=== PATIENT | female | born 1950 | race Two or more races ===

== ENCOUNTER 2019-08-18 14:34 | Inpatient (IN) | payer MEDICARE, MEDICAID ==
[~2019-08-18] VITALS: Ht 167.6 cm; Wt 63.2 kg
[~2019-08-18 14:34] MED LIST: ALLO100T PO; COR6 PO; FERR325T23 PO; FURO40TA5 PO; HYDR-4001 PO; HYDR-4135 PO; NIFE-32 PO; SILD20TA PO
[2019-08-18] MEDS ORDERED: ALBUTEROL (0.083%) 2.5MG/3ML NEB HHN STA (15:42)
[2019-08-18] MEDS ORDERED: METHYLPREDNISOLONE SOD SUCC 125 MG/2 ML VIAL IV STA (15:42)
[2019-08-18] MEDS ORDERED: IPRATROPIUM BROMIDE (0.02%) 0.5MG/2.5ML NEB HHN STA (15:42)
[2019-08-18] MEDS ORDERED: ASPIRIN 81MG TABLET PO ONE (15:45)
[2019-08-18] MEDS ORDERED: MAGNESIUM 2 G PREMIX 50 ML IV ONE (15:45)
[2019-08-18] MEDS ORDERED: FUROSEMIDE 40MG/4ML VIAL IV ONE (15:45)
[2019-08-18 17:05] LABS: BASOPHILS % 0.3 % (0.0-2.0); LYMPHOCYTES % 7.2 % (20.0-50.0); MEAN CORPUSCULAR HEMOGLOBIN 27.8 pg (28.0-32.0); MEAN CORPUSCULAR VOLUME 89.5 fL (81.0-99.0); MEAN PLATELET VOLUME 8.7 fl (7.4-10.4); MONOCYTES % 4.9 % (2.0-8.0); NEUTROPHILS % 87.6 % (40.0-76.0); PLATELET 183 x1000/uL (130-400); RED BLOOD CELL COUNT 1.93 mill/uL (4.2-5.4); RED CELL DISTRIBUTION WIDTH 18.7 % (11.6-14.6)
[2019-08-18 17:10] LABS: CHLORIDE 117 mEq/L (98-107); HEMOGLOBIN. 5.4 g/dL (12.0-16.0)
[2019-08-18 17:11] LABS: HEMATOCRIT. 17.3 % (36.0-48.0); INR 1.2
[2019-08-18] MEDS ORDERED: SODIUM BICARBONATE 8.4% 1 MEQ/ML 50ML SYR IV ONE (17:30)
[2019-08-18] MEDS ORDERED: DEXTROSE 50% WATER 50ML SYRINGE IV ONE (17:30)
[2019-08-18] MEDS ORDERED: INSULIN REGULAR (HUMULIN R) 300UNITS/3ML IV ONE (17:30)
[2019-08-18] MEDS ORDERED: CALCIUM GLUCONATE 1,000 MG in DEXT 5% WATER 100 ML IV NR (17:45)
[2019-08-18 18:12] LABS: PHOSPHORUS 6.2 mg/dL (2.5-4.9)
[2019-08-18 18:31] LABS: CLARITY URINE CLOUDY (CLEAR); COLOR URINE YELLOW (YELLOW); KETONES URINE NEGATIVE (NEGATIVE); LEUKOCYTE ESTERASE URINE NEGATIVE (NEGATIVE); NITRITE URINE NEGATIVE (NEGATIVE); OCCULT BLOOD URINE NEGATIVE (NEGATIVE); PROTEIN URINE 3+ (NEGATIVE); SPECIFIC GRAVITY URINE 1.014 (1.005-1.030); UROBILINOGEN URINE 0.2 E.U./dL (0.2-1.0)
[2019-08-18] MEDS ORDERED: CLON0.1T PO (22:05)
[2019-08-18] MEDS ORDERED: CARV12.545 PO (22:05)
[2019-08-18] MEDS ORDERED: HYDR-4135 PO (22:05)
[2019-08-18] MEDS ORDERED: NIFE-32 PO (22:05)
[2019-08-18] MEDS ORDERED: SILD20TA PO (22:05)
[2019-08-18] MEDS: MORPHINE SULFATE 2 MG/ML CPJ (NOT FOR IM USE) IV PRN (22:43)
[2019-08-18] MEDS ORDERED: SILDENAFIL CITRATE 20MG TABLET PO SCH (23:15)
[2019-08-18] MEDS ORDERED: ONDANSETRON HCL 4MG/2ML INJ IV PRN (23:15)
[2019-08-18] MEDS ORDERED: ENOXAPARIN 40MG/0.4ML SYR SUBCUT SCH (23:15)
[2019-08-18] MEDS ORDERED: LORAZEPAM 2MG/ML CPJ IV PRN (23:15)
[2019-08-18] MEDS ORDERED: IPRATROPIUM/ALBUTEROL 0.5-3(2.5)MG/3ML NEB NEB PRN (23:15)
[2019-08-19] VITALS (14 sets, daily range): BP systolic 92–145; BP diastolic 61–73
[2019-08-19] MEDS: NIFEDIPINE XL 60MG TAB PO SCH ×2 (00:50→09:00)
[2019-08-19] MEDS: CLONIDINE 0.1MG TABLET PO SCH ×2 (00:50→05:37)
[2019-08-19] MEDS: IPRATROPIUM/ALBUTEROL 0.5-3(2.5)MG/3ML NEB NEB PRN ×2 (00:53→20:59)
[2019-08-19 03:47] LABS: *AMPHETAMINES SCREEN URINE NEGATIVE (NEGATIVE); *BARBITURATES SCREEN URINE NEGATIVE (NEGATIVE); *BENZODIAZEPINES SCREEN URINE NEGATIVE (NEGATIVE); *COCAINE SCREEN URINE NEGATIVE (NEGATIVE); CANNABINOID URINE SCREEN NEGATIVE (NEGATIVE); METHADONE URINE SCREEN NEGATIVE (NEGATIVE); OPIATES URINE SCREEN NEGATIVE (NEGATIVE)
[2019-08-19 03:48] LABS: PHENCYCLIDINE URINE SCREEN NEGATIVE (NEGATIVE)
[2019-08-19] MEDS ORDERED: HYDRALAZINE HCL 50MG TABLET PO SCH (06:00)
[2019-08-19 07:12] LABS: MEAN CORPUSCULAR HEMOGLOBIN 27.7 pg (28.0-32.0); MEAN CORPUSCULAR VOLUME 89.1 fL (81.0-99.0); MEAN PLATELET VOLUME 8.8 fl (7.4-10.4); PLATELET 194 x1000/uL (130-400); RED BLOOD CELL COUNT 2.13 mill/uL (4.2-5.4); RED CELL DISTRIBUTION WIDTH 18.7 % (11.6-14.6)
[2019-08-19 07:23] LABS: HEMOGLOBIN. 5.9 g/dL (12.0-16.0)
[2019-08-19] MEDS ORDERED: LEVOFLOXACIN 500MG PREMIX 100 ML IV SCH (09:00)
[2019-08-19] MEDS ORDERED: ASPIRIN 81MG EC TABLET PO SCH (09:00)
[2019-08-19] MEDS ORDERED: CARVEDILOL 12.5MG TABLET PO SCH (09:00)
[2019-08-19 09:07] LABS: TOTAL IRON BINDING CAPACITY 244 ug/dL (250-450)
[2019-08-19] MEDS: FUROSEMIDE 40MG/4ML VIAL IV SCH ×2 (09:38→17:00)
[2019-08-19] MEDS: HYDROCODONE/ACETAMINOPHEN 5/325MG TABLET PO PRN (09:38)
[2019-08-19] MEDS ORDERED: SODIUM POLYSTYRENE SULFONATE 15 G/60 ML BOT PO SCH (10:30)
[2019-08-19 11:18] LABS: HEMATOCRIT. 23.3 % (36.0-48.0); HEMOGLOBIN. 7.3 g/dL (12.0-16.0); MEAN CORPUSCULAR HEMOGLOBIN 28.2 pg (28.0-32.0); MEAN CORPUSCULAR VOLUME 89.9 fL (81.0-99.0); MEAN PLATELET VOLUME 8.8 fl (7.4-10.4); PLATELET 243 x1000/uL (130-400); RED BLOOD CELL COUNT 2.59 mill/uL (4.2-5.4)
[2019-08-19] MEDS ORDERED: DEXTROSE 50% WATER 50ML SYRINGE IV PRN (11:45)
[2019-08-19] MEDS ORDERED: SODIUM BICARBONATE 8.4% 1 MEQ/ML 50ML SYR IV NR ×2 (12:00→13:45)
[2019-08-19] MEDS: BLOOD SUGAR DIAGNOSTIC STRIP TEST SCH ×3 (12:30→20:18)
[2019-08-19] MEDS: OMEPRAZOLE 20MG CAPSULE EXTENDED RELEASE PO SCH (12:49)
[2019-08-19] MEDS: FERROUS SULFATE 325MG TABLET PO SCH ×2 (12:50→18:00)
[2019-08-19 12:58] LABS: PLATELET ESTIMATE NORMAL
[2019-08-19] MEDS ORDERED: CALCIUM CHLORIDE 1,000 MG in DEXT 5% WATER 90 ML IV NR (13:00)
[2019-08-19] MEDS: INSULIN LISPRO 100 UNITS/ML SUBCUT SCH ×3 (13:00→20:44)
[2019-08-19] MEDS: PANTOPRAZOLE SODIUM 40 MG/VIAL IV SCH (13:30)
[2019-08-19] MEDS ORDERED: SODIUM BICARBONATE 4% (2.4MEQ) 5ML VIAL IV ONE (13:36)
[2019-08-19] MEDS ORDERED: LIDOCAINE HCL 1% 20ML VIAL (Pyxis) INJ ONE (13:36)
[2019-08-19] MEDS ORDERED: DEXTROSE 50% WATER 50ML SYRINGE IV NR (13:45)
[2019-08-19] MEDS ORDERED: ALBUTEROL (0.083%) 2.5MG/3ML NEB HHN NR (13:45)
[2019-08-19 13:58] LABS: NUCLEATED RED BLOOD CELLS 1 /100 WBC; PLATELET ESTIMATE NORMAL
[2019-08-19] MEDS ORDERED: CALCIUM GLUCONATE 1,000 MG in DEXT 5% WATER 90 ML IV NR (14:00)
[2019-08-19] MEDS ORDERED: INSULIN REGULAR (HUMULIN R) UD 100 UNITS/ML SYR IV NR (14:00)
[2019-08-19] MEDS: BUDESONIDE 0.5MG/2ML NEB HHN SCH ×2 (17:24→20:57)
[2019-08-19] MEDS: IRON SUCROSE COMPLEX 100 MG/5 ML ML IV SCH (18:55)
[2019-08-20] VITALS (16 sets, daily range): BP systolic 108–160; BP diastolic 58–81
[2019-08-20 00:23] LABS: PHOSPHORUS 6.9 mg/dL (2.5-4.9)
[2019-08-20] MEDS: IPRATROPIUM/ALBUTEROL 0.5-3(2.5)MG/3ML NEB NEB PRN ×3 (01:07→09:21)
[2019-08-20 01:15] LABS: HEPATITIS A AB IGM NEGATIVE (NEGATIVE)
[2019-08-20 01:52] LABS: HEPATITIS B SURFACE ANTIGEN NEGATIVE
[2019-08-20 07:10] LABS: HEMOGLOBIN. 7.1 g/dL (12.0-16.0); MEAN CORPUSCULAR HEMOGLOBIN 28.5 pg (28.0-32.0); MEAN CORPUSCULAR VOLUME 88.6 fL (81.0-99.0); MEAN PLATELET VOLUME 8.8 fl (7.4-10.4); PLATELET 208 x1000/uL (130-400); RED BLOOD CELL COUNT 2.49 mill/uL (4.2-5.4); RED CELL DISTRIBUTION WIDTH 18.2 % (11.6-14.6)
[2019-08-20] MEDS: BLOOD SUGAR DIAGNOSTIC STRIP TEST SCH ×4 (07:53→21:00)
[2019-08-20] MEDS: INSULIN LISPRO 100 UNITS/ML SUBCUT SCH ×4 (08:00→21:00)
[2019-08-20] MEDS: PANTOPRAZOLE SODIUM 40 MG/VIAL IV SCH (08:25)
[2019-08-20] MEDS: FUROSEMIDE 40MG/4ML VIAL IV SCH ×2 (08:26→16:45)
[2019-08-20] MEDS: FERROUS SULFATE 325MG TABLET PO SCH ×3 (08:26→17:19)
[2019-08-20] MEDS: OMEPRAZOLE 20MG CAPSULE EXTENDED RELEASE PO SCH (08:28)
[2019-08-20] MEDS ORDERED: DOCUSATE SODIUM 100MG CAPSULE PO PRN (08:30)
[2019-08-20] MEDS: BUDESONIDE 0.5MG/2ML NEB HHN SCH ×2 (09:20→21:09)
[2019-08-20] MEDS ORDERED: NA PHOS,M-B/NA PHOS,DI-BA ENEMA 118ML PR SCH (11:45)
[2019-08-20] MEDS: IPRATROPIUM/ALBUTEROL 0.5-3(2.5)MG/3ML NEB HHN SCH ×3 (12:57→21:08)
[2019-08-20 14:04] LABS: NUCLEATED RED BLOOD CELLS 1 /100 WBC; PLATELET ESTIMATE NORMAL
[2019-08-20] MEDS ORDERED: LIDOCAINE HCL 1% 20ML VIAL (Pyxis) INJ ONE (14:36)
[2019-08-20] MEDS ORDERED: SODIUM BICARBONATE 4% (2.4MEQ) 5ML VIAL IV ONE (14:37)
[2019-08-20] MEDS ORDERED: DOCUSATE SODIUM 100MG CAPSULE PO NR ×2 (15:00→19:00)
[2019-08-20] MEDS ORDERED: METOCLOPRAMIDE HCL 10MG/2ML VIAL IV NR ×2 (15:00→19:00)
[2019-08-20] MEDS ORDERED: SORBITOL 70% SOLN 30ML PO NR ×2 (16:00→20:00)
[2019-08-20] MEDS: IRON SUCROSE COMPLEX 100 MG/5 ML ML IV SCH (16:45)
[2019-08-20] MEDS: MORPHINE SULFATE 2 MG/ML CPJ (NOT FOR IM USE) IV PRN (18:43)
[2019-08-20 20:14] LABS: HEMATOCRIT 32.8 % (36.0-48.0); HEMOGLOBIN 10.5 g/dL (12.0-16.0)
[2019-08-20] MEDS: CLONIDINE 0.1MG TABLET PO PRN (23:33)
[2019-08-21] VITALS (10 sets, daily range): BP systolic 152–178; BP diastolic 76–91
[2019-08-21] MEDS: IPRATROPIUM/ALBUTEROL 0.5-3(2.5)MG/3ML NEB HHN SCH ×7 (00:22→20:30)
[2019-08-21] MEDS: MORPHINE SULFATE 2 MG/ML CPJ (NOT FOR IM USE) IV PRN ×3 (03:45→20:30)
[2019-08-21 06:56] LABS: HEMATOCRIT. 28.4 % (36.0-48.0); HEMOGLOBIN. 9.4 g/dL (12.0-16.0); MEAN CORPUSCULAR HEMOGLOBIN 28.8 pg (28.0-32.0); MEAN CORPUSCULAR VOLUME 86.7 fL (81.0-99.0); MEAN PLATELET VOLUME 8.5 fl (7.4-10.4); PLATELET 167 x1000/uL (130-400); RED BLOOD CELL COUNT 3.28 mill/uL (4.2-5.4); RED CELL DISTRIBUTION WIDTH 17.3 % (11.6-14.6)
[2019-08-21 07:01] LABS: INR 1.1; PARTIAL THROMBOPLASTIN TIME 38.7 sec (23.4-31.0)
[2019-08-21] MEDS: FERROUS SULFATE 325MG TABLET PO SCH (07:29)
[2019-08-21] MEDS: BLOOD SUGAR DIAGNOSTIC STRIP TEST SCH ×4 (07:29→20:54)
[2019-08-21] MEDS: INSULIN LISPRO 100 UNITS/ML SUBCUT SCH ×4 (08:00→20:55)
[2019-08-21] MEDS: PANTOPRAZOLE SODIUM 40 MG/VIAL IV SCH (08:48)
[2019-08-21] MEDS: FUROSEMIDE 40MG/4ML VIAL IV SCH (08:48)
[2019-08-21] MEDS ORDERED: LEVOFLOXACIN 250MG PREMIX 50 ML IV SCH ×2 (09:00→10:00)
[2019-08-21] MEDS: CLONIDINE 0.1MG TABLET PO PRN ×2 (09:51→18:04)
[2019-08-21 09:55] LABS: PLATELET ESTIMATE NORMAL
[2019-08-21] MEDS: NIFEDIPINE XL 60MG TAB PO SCH ×2 (12:00→20:47)
[2019-08-21] MEDS: BUDESONIDE 0.5MG/2ML NEB HHN SCH ×2 (14:06→20:30)
[2019-08-21] MEDS ORDERED: MIDAZOLAM HCL 5 MG/5 ML VIAL ONE (15:08)
[2019-08-21] MEDS ORDERED: FENTANYL CITRATE/PF 50MCG/ML 2ML VIAL ONE (15:09)
[2019-08-21] MEDS: IRON SUCROSE COMPLEX 100 MG/5 ML ML IV SCH (16:15)
[2019-08-21] MEDS ORDERED: METOCLOPRAMIDE HCL 5MG TABLET PO ONE (16:30)
[2019-08-21] MEDS ORDERED: BISACODYL 5MG TABLET PO NR (16:30)
[2019-08-21] MEDS: BISACODYL 10MG SUPP PR SCH ×2 (19:27→20:19)
[2019-08-21] MEDS ORDERED: SORBITOL 70% SOLN 30ML PO NR (20:00)
[2019-08-21] MEDS: GUAIFENESIN 600MG ER TABLET PO SCH (20:47)
[2019-08-22] VITALS (22 sets, daily range): BP systolic 132–178; BP diastolic 63–89
[2019-08-22] MEDS: IPRATROPIUM/ALBUTEROL 0.5-3(2.5)MG/3ML NEB HHN SCH ×3 (00:28→16:54)
[2019-08-22] MEDS: CLONIDINE 0.1MG TABLET PO PRN (00:32)
[2019-08-22] MEDS ORDERED: METOCLOPRAMIDE HCL 5MG TABLET PO NR (04:00)
[2019-08-22] MEDS ORDERED: SORBITOL 70% SOLN 30ML PO NR ×2 (04:00)
[2019-08-22 06:56] LABS: BASOPHILS % 0.1 % (0.0-2.0); EOSINOPHILS % 1.3 % (0.0-5.0); HEMATOCRIT. 28.6 % (36.0-48.0); HEMOGLOBIN. 9.4 g/dL (12.0-16.0); LYMPHOCYTES % 7.7 % (20.0-50.0); MEAN CORPUSCULAR HEMOGLOBIN 28.6 pg (28.0-32.0); MEAN CORPUSCULAR VOLUME 87.2 fL (81.0-99.0); MEAN PLATELET VOLUME 8.6 fl (7.4-10.4); MONOCYTES % 4.4 % (2.0-8.0); NEUTROPHILS % 86.5 % (40.0-76.0); PLATELET 143 x1000/uL (130-400); RED BLOOD CELL COUNT 3.28 mill/uL (4.2-5.4); RED CELL DISTRIBUTION WIDTH 17.2 % (11.6-14.6)
[2019-08-22] MEDS: BLOOD SUGAR DIAGNOSTIC STRIP TEST SCH ×3 (07:30→17:30)
[2019-08-22] MEDS: INSULIN LISPRO 100 UNITS/ML SUBCUT SCH ×3 (08:00→18:33)
[2019-08-22] MEDS: BUDESONIDE 0.5MG/2ML NEB HHN SCH (08:42)
[2019-08-22] MEDS: PANTOPRAZOLE SODIUM 40 MG/VIAL IV SCH (09:09)
[2019-08-22] MEDS: NIFEDIPINE XL 60MG TAB PO SCH (09:09)
[2019-08-22] MEDS: GUAIFENESIN 600MG ER TABLET PO SCH (09:09)
[2019-08-22] MEDS ORDERED: PREDNISONE 20MG TABLET PO SCH (09:45)
[2019-08-22] MEDS ORDERED: OMEP20CA14 MT (10:26)
[2019-08-22] MEDS ORDERED: SODIUM BICARBONATE 4% (2.4MEQ) 5ML VIAL IV ONE (12:51)
[2019-08-22] MEDS ORDERED: LIDOCAINE HCL 1% 20ML VIAL (Pyxis) INJ ONE (12:51)
[2019-08-22] MEDS ORDERED: FENTANYL CITRATE/PF 50MCG/ML 2ML VIAL ONE (13:27)
[2019-08-22] MEDS ORDERED: FENTANYL CITRATE/PF 50MCG/ML 2ML VIAL IV ONE (13:45)
[2019-08-22] MEDS: HYDROCODONE/ACETAMINOPHEN 5/325MG TABLET PO PRN (17:32)
[2019-08-22] MEDS ORDERED: HEPARIN SODIUM 1,000 UNIT/1ML VIAL IV NR (17:59)
== END 2019-08-22 22:31 | disposition home or self-care (01) | DRG 291 ==
LOC: ER 14:34 → EDBEDREQ 18:20 → ENRESERV 21:00 → 5EST 21:20
PROVIDERS: ADMIT Internal Medicine Nephrology; ATTEND Internal Medicine Nephrology
PROC: 02HV33Z Insertion of Infusion Device into Superior Vena Cava, Percutaneous Approach (ICD-10-PCS; principal; 2019-08-19)
PROC: B548ZZA Ultrasonography of Superior Vena Cava, Guidance (ICD-10-PCS; 2019-08-19)
PROC: 30233N1 Transfusion of Nonautologous Red Blood Cells into Peripheral Vein, Percutaneous Approach (ICD-10-PCS; 2019-08-19)
PROC: 5A1D70Z Performance of Urinary Filtration, Intermittent, Less than 6 Hours Per Day (ICD-10-PCS; 2019-08-19)
PROC: 0W9G3ZZ Drainage of Peritoneal Cavity, Percutaneous Approach (ICD-10-PCS; 2019-08-21)
PROC: 0DB78ZX Excision of Stomach, Pylorus, Via Natural or Artificial Opening Endoscopic, Diagnostic (ICD-10-PCS; 2019-08-21)
PROC: 0DJD8ZZ Inspection of Lower Intestinal Tract, Via Natural or Artificial Opening Endoscopic (ICD-10-PCS; 2019-08-21)
PROC: 0JH63XZ Insertion of Tunneled Vascular Access Device into Chest Subcutaneous Tissue and Fascia, Percutaneous Approach (ICD-10-PCS; 2019-08-22)
PROC: 02HV33Z Insertion of Infusion Device into Superior Vena Cava, Percutaneous Approach (ICD-10-PCS; 2019-08-22)
PROC: B5181ZA Fluoroscopy of Superior Vena Cava using Low Osmolar Contrast, Guidance (ICD-10-PCS; 2019-08-22)
DX: I13.2 Hypertensive heart and chronic kidney disease with heart failure and with stage 5 chronic kidney disease, or end stage renal disease (principal); I50.31 Acute diastolic (congestive) heart failure; J96.00 Acute respiratory failure, unspecified whether with hypoxia or hypercapnia; E43 Unspecified severe protein-calorie malnutrition; J18.9 Pneumonia, unspecified organism; N18.6 End stage renal disease; J44.0 Chronic obstructive pulmonary disease with (acute) lower respiratory infection; J44.1 Chronic obstructive pulmonary disease with (acute) exacerbation; K22.10 Ulcer of esophagus without bleeding; R18.8 Other ascites; N17.9 Acute kidney failure, unspecified; I16.0 Hypertensive urgency; E87.5 Hyperkalemia; I27.20 Pulmonary hypertension, unspecified; K74.60 Unspecified cirrhosis of liver; E87.8 Other disorders of electrolyte and fluid balance, not elsewhere classified; E11.22 Type 2 diabetes mellitus with diabetic chronic kidney disease; K29.70 Gastritis, unspecified, without bleeding; R82.71 Bacteriuria; B19.20 Unspecified viral hepatitis C without hepatic coma; R26.9 Unspecified abnormalities of gait and mobility; E11.42 Type 2 diabetes mellitus with diabetic polyneuropathy; D64.9 Anemia, unspecified; D50.9 Iron deficiency anemia, unspecified; E11.65 Type 2 diabetes mellitus with hyperglycemia; F17.210 Nicotine dependence, cigarettes, uncomplicated; K29.80 Duodenitis without bleeding; Z82.49 Family history of ischemic heart disease and other diseases of the circulatory system; Z83.3 Family history of diabetes mellitus; Z90.710 Acquired absence of both cervix and uterus; Z91.15 Patient's noncompliance with renal dialysis; Z91.19 Patient's noncompliance with other medical treatment and regimen; Z88.7 Allergy status to serum and vaccine; Z79.899 Other long term (current) drug therapy; Z68.22 Body mass index [BMI] 22.0-22.9, adult; Z71.6 Tobacco abuse counseling; Z87.19 Personal history of other diseases of the digestive system
CPT/HCPCS: 36415; 36558; 36589; 49083; 71045; 76705; 76856; 76937; 77001; 80048; 80053; 80305; 81003; 82728; 82962; 83036; 83540; 83550; 83735; 83880; 83970; 84100; 84145; 84484; 85014; 85018; 85025; 86705; 86709; 86803; 86850; 86900; 86920; 87340; 87804; 88305; 88312; 88313; 92610; 93005; 93970; 94640; 94644; 96365; 96366; 96375; 97162; 97166; 99152; 99153; 99291; C1750; C1752; C1769; C9113; J0610; J1642; J1815; J1940; J1956; J2250; J2270; J2765; J2930; J3010; J3475; J3490; J7060; J7512; J7611; J7620; J7626; J8597; P9016; G0500

== ENCOUNTER 2019-09-19 15:17 | Emergency (ER) | payer MEDICARE, MEDICAID ==
[~2019-09-19] VITALS: Ht 167.6 cm; Wt 60.0 kg
[~2019-09-19 15:17] MED LIST changes: -COR6 PO; +OMEP20CA14 MT
[2019-09-19 15:32] VITALS: BP 129/66
== END 2019-09-19 19:45 | disposition left against medical advice (07) ==
LOC: ER 15:17
DX: R42 Dizziness and giddiness (principal); Z53.21 Procedure and treatment not carried out due to patient leaving prior to being seen by health care provider

== ENCOUNTER 2019-11-05 10:22 | Inpatient (IN) | payer MEDICARE, MEDICAID ==
[~2019-11-05] VITALS: Ht 165.1 cm; Wt 51.7 kg
[2019-11-05 11:50] LABS: CHLORIDE 115 mEq/L (98-107)
[2019-11-05 11:51] LABS: INR 0.9; PROTHROMBIN TIME 10.2 sec (9.6-11.0)
[2019-11-05 12:04] LABS: BASOPHILS % 1.2 % (0.0-2.0); EOSINOPHILS % 4.6 % (0.0-5.0); LYMPHOCYTES % 21.6 % (20.0-50.0); MEAN CORPUSCULAR HEMOGLOBIN 31.2 pg (28.0-32.0); MEAN CORPUSCULAR VOLUME 93.9 fL (81.0-99.0); MEAN PLATELET VOLUME 8.5 fl (7.4-10.4); MONOCYTES % 9.5 % (2.0-8.0); NEUTROPHILS % 63.1 % (40.0-76.0); PLATELET 134 x1000/uL (130-400); RED BLOOD CELL COUNT 2.01 mill/uL (4.2-5.4); RED CELL DISTRIBUTION WIDTH 17.6 % (11.6-14.6)
[2019-11-05 12:07] LABS: HEMOGLOBIN. 6.3 g/dL (12.0-16.0)
[2019-11-05 12:08] LABS: HEMATOCRIT. 18.8 % (36.0-48.0)
[2019-11-05 12:25] LABS: CLARITY URINE CLEAR (CLEAR); COLOR URINE YELLOW (YELLOW); KETONES URINE NEGATIVE (NEGATIVE); LEUKOCYTE ESTERASE URINE NEGATIVE (NEGATIVE); NITRITE URINE NEGATIVE (NEGATIVE); OCCULT BLOOD URINE NEGATIVE (NEGATIVE); PH URINE 5.5 (4.5-8.0); PROTEIN URINE 3+ (NEGATIVE); SPECIFIC GRAVITY URINE 1.012 (1.005-1.030); UROBILINOGEN URINE 0.2 E.U./dL (0.2-1.0)
[2019-11-05 21:35] VITALS: BP 181/81
[2019-11-05 22:00] VITALS: BP 181/81
[2019-11-05] MEDS ORDERED: IPRATROPIUM/ALBUTEROL 0.5-3(2.5)MG/3ML NEB NEB PRN (22:00)
[2019-11-05] MEDS ORDERED: ONDANSETRON HCL 4MG/2ML INJ IV PRN (22:00)
[2019-11-05] MEDS ORDERED: ENOXAPARIN 40MG/0.4ML SYR SUBCUT SCH (22:00)
[2019-11-05] MEDS ORDERED: HYDROCODONE/ACETAMINOPHEN 5/325MG TABLET PO PRN (22:00)
[2019-11-05] MEDS ORDERED: ACETAMINOPHEN 325MG TABLET PO PRN (22:00)
[2019-11-05] MEDS ORDERED: LORAZEPAM 2MG/ML CPJ IV PRN (22:00)
[2019-11-05] MEDS: CLONIDINE 0.1MG TABLET PO PRN (22:19)
[2019-11-05] MEDS: MORPHINE SULFATE 2 MG/ML CPJ (NOT FOR IM USE) IV PRN (22:26)
[2019-11-06] VITALS (11 sets, daily range): BP systolic 124–190; BP diastolic 66–84
[2019-11-06 01:06] LABS: HEPATITIS B SURFACE ANTIGEN NEGATIVE
[2019-11-06 01:36] LABS: HEPATITIS A AB IGM NEGATIVE (NEGATIVE)
[2019-11-06] MEDS ORDERED: DEXTROSE 50% WATER 50ML SYRINGE IV PRN (07:30)
[2019-11-06] MEDS: INSULIN LISPRO 100 UNITS/ML SUBCUT SCH ×4 (07:50→20:54)
[2019-11-06] MEDS: LISINOPRIL 10MG TABLET PO SCH (08:03)
[2019-11-06] MEDS: BLOOD SUGAR DIAGNOSTIC STRIP TEST SCH ×4 (08:03→20:54)
[2019-11-06] MEDS: THIAMINE HCL 100MG TABLET PO SCH (08:06)
[2019-11-06 08:28] LABS: BASOPHILS % 0.9 % (0.0-2.0); EOSINOPHILS % 4.4 % (0.0-5.0); LYMPHOCYTES % 26.1 % (20.0-50.0); MEAN CORPUSCULAR HEMOGLOBIN 30.7 pg (28.0-32.0); MEAN CORPUSCULAR VOLUME 92.8 fL (81.0-99.0); MEAN PLATELET VOLUME 8.3 fl (7.4-10.4); MONOCYTES % 12.1 % (2.0-8.0); NEUTROPHILS % 56.5 % (40.0-76.0); PLATELET 118 x1000/uL (130-400); RED BLOOD CELL COUNT 2.12 mill/uL (4.2-5.4); RED CELL DISTRIBUTION WIDTH 16.8 % (11.6-14.6)
[2019-11-06 08:46] LABS: HEMOGLOBIN. 6.5 g/dL (12.0-16.0)
[2019-11-06 08:48] LABS: HEMATOCRIT. 19.7 % (36.0-48.0)
[2019-11-06 08:53] LABS: PHOSPHORUS 7.4 mg/dL (2.5-4.9)
[2019-11-06] MEDS ORDERED: ENOXAPARIN 30MG/0.3ML SYR SUBCUT SCH (09:00)
[2019-11-06] MEDS ORDERED: LIDOCAINE HCL 1% 20ML VIAL (Pyxis) INJ ONE (10:16)
[2019-11-06] MEDS ORDERED: SODIUM BICARBONATE 4% (2.4MEQ) 5ML VIAL IV ONE (10:16)
[2019-11-06] MEDS: FERROUS SULFATE 325MG TABLET PO SCH ×2 (12:57→17:25)
[2019-11-06] MEDS: DOCUSATE SODIUM 250MG CAPSULE PO SCH (12:57)
[2019-11-06] MEDS ORDERED: OMEPRAZOLE 20MG CAPSULE EXTENDED RELEASE PO SCH (13:00)
[2019-11-06] MEDS: AMLODIPINE 5MG TABLET PO SCH (15:00)
[2019-11-06] MEDS: OMEPRAZOLE 20MG CAPSULE EXTENDED RELEASE PO SCH (17:20)
[2019-11-06] MEDS ORDERED: HYDRALAZINE 20MG/ML VIAL IV PRN (17:45)
[2019-11-07] VITALS: BP 183/83
[2019-11-07] MEDS: CLONIDINE 0.1MG TABLET PO PRN (00:01)
[2019-11-07] MEDS: AMLODIPINE 5MG TABLET PO SCH ×3 (00:01→21:48)
[2019-11-07 00:31] VITALS: BP 173/74
[2019-11-07 00:52] LABS: BASOPHILS % 0.6 % (0.0-2.0); HEMATOCRIT. 31.4 % (36.0-48.0); HEMOGLOBIN. 10.9 g/dL (12.0-16.0); MEAN CORPUSCULAR HEMOGLOBIN 30.5 pg (28.0-32.0); MEAN CORPUSCULAR VOLUME 87.7 fL (81.0-99.0); MEAN PLATELET VOLUME 8.1 fl (7.4-10.4); MONOCYTES % 11.9 % (2.0-8.0); NEUTROPHILS % 66.5 % (40.0-76.0); PLATELET 101 x1000/uL (130-400); RED BLOOD CELL COUNT 3.58 mill/uL (4.2-5.4); RED CELL DISTRIBUTION WIDTH 16.8 % (11.6-14.6)
[2019-11-07 01:21] LABS: CARCINO EMBRYONIC ANTIGEN 1.4 ng/ml
[2019-11-07] MEDS: OMEPRAZOLE 20MG CAPSULE EXTENDED RELEASE PO SCH ×2 (06:41→17:03)
[2019-11-07] MEDS: FERROUS SULFATE 325MG TABLET PO SCH ×3 (06:41→17:03)
[2019-11-07] MEDS: BLOOD SUGAR DIAGNOSTIC STRIP TEST SCH ×4 (06:44→21:53)
[2019-11-07] MEDS: INSULIN LISPRO 100 UNITS/ML SUBCUT SCH ×4 (07:42→21:00)
[2019-11-07 08:00] VITALS: BP 173/74
[2019-11-07] MEDS: THIAMINE HCL 100MG TABLET PO SCH (09:18)
[2019-11-07] MEDS: LISINOPRIL 10MG TABLET PO SCH (09:18)
[2019-11-07] MEDS: DOCUSATE SODIUM 250MG CAPSULE PO SCH (09:18)
[2019-11-07 12:00] VITALS: BP 180/75
[2019-11-07] MEDS: SUCRALFATE 1 G/10 ML UDC PO SCH ×3 (12:15→21:48)
[2019-11-07 16:00] VITALS: BP 175/75
[2019-11-07 20:00] VITALS: BP 135/87
[2019-11-07] MEDS: MORPHINE SULFATE 2 MG/ML CPJ (NOT FOR IM USE) IV PRN (22:15)
[2019-11-08] VITALS: BP 147/72
[2019-11-08 04:00] VITALS: BP 165/76
[2019-11-08] MEDS: SUCRALFATE 1 G/10 ML UDC PO SCH ×2 (06:35→12:53)
[2019-11-08] MEDS: OMEPRAZOLE 20MG CAPSULE EXTENDED RELEASE PO SCH (06:35)
[2019-11-08] MEDS: FERROUS SULFATE 325MG TABLET PO SCH ×2 (06:35→12:53)
[2019-11-08] MEDS: CLONIDINE 0.1MG TABLET PO PRN (06:35)
[2019-11-08] MEDS: BLOOD SUGAR DIAGNOSTIC STRIP TEST SCH ×2 (06:44→12:50)
[2019-11-08] MEDS: INSULIN LISPRO 100 UNITS/ML SUBCUT SCH ×2 (07:50→12:50)
[2019-11-08 08:00] VITALS: BP 145/78
[2019-11-08] MEDS: DOCUSATE SODIUM 250MG CAPSULE PO SCH (08:24)
[2019-11-08] MEDS: AMLODIPINE 5MG TABLET PO SCH (08:24)
[2019-11-08] MEDS: THIAMINE HCL 100MG TABLET PO SCH (08:25)
[2019-11-08] MEDS ORDERED: LISINOPRIL 20MG TABLET PO SCH (09:00)
[2019-11-08] MEDS ORDERED: HYDR-4009 MT (12:23)
[2019-11-08 12:30] VITALS: BP 144/84
[2019-11-08 12:46] LABS: HEMATOCRIT. 31.7 % (36.0-48.0); HEMOGLOBIN. 10.7 g/dL (12.0-16.0); LYMPHOCYTES % 26.7 % (20.0-50.0); MEAN CORPUSCULAR HEMOGLOBIN 30.3 pg (28.0-32.0); MEAN CORPUSCULAR VOLUME 89.6 fL (81.0-99.0); MEAN PLATELET VOLUME 8.7 fl (7.4-10.4); MONOCYTES % 9.6 % (2.0-8.0); NEUTROPHILS % 56.7 % (40.0-76.0); PLATELET 104 x1000/uL (130-400); RED BLOOD CELL COUNT 3.54 mill/uL (4.2-5.4); RED CELL DISTRIBUTION WIDTH 16.9 % (11.6-14.6)
[2019-11-08 13:16] VITALS: BP 144/78
== END 2019-11-08 13:35 | disposition home or self-care (01) | DRG 432 ==
LOC: ER 10:22 → EDBEDREQ 13:00 → 6WST 14:16 → EDBEDREQTM 14:22 → ENRESERV 18:36
PROVIDERS: ADMIT Internal Medicine Nephrology; ATTEND Internal Medicine Nephrology
PROC: 30233N1 Transfusion of Nonautologous Red Blood Cells into Peripheral Vein, Percutaneous Approach (ICD-10-PCS; 2019-11-05)
PROC: 0W9G3ZZ Drainage of Peritoneal Cavity, Percutaneous Approach (ICD-10-PCS; principal; 2019-11-06)
DX: K74.69 Other cirrhosis of liver (principal); E43 Unspecified severe protein-calorie malnutrition; N18.6 End stage renal disease; I13.2 Hypertensive heart and chronic kidney disease with heart failure and with stage 5 chronic kidney disease, or end stage renal disease; J98.11 Atelectasis; D61.818 Other pancytopenia; Z68.1 Body mass index [BMI] 19.9 or less, adult; D50.0 Iron deficiency anemia secondary to blood loss (chronic); E87.8 Other disorders of electrolyte and fluid balance, not elsewhere classified; F17.210 Nicotine dependence, cigarettes, uncomplicated; J44.9 Chronic obstructive pulmonary disease, unspecified; K57.30 Diverticulosis of large intestine without perforation or abscess without bleeding; B18.2 Chronic viral hepatitis C; D63.8 Anemia in other chronic diseases classified elsewhere; R19.00 Intra-abdominal and pelvic swelling, mass and lump, unspecified site; Z53.09 Procedure and treatment not carried out because of other contraindication; I50.9 Heart failure, unspecified; Z99.2 Dependence on renal dialysis; Z87.19 Personal history of other diseases of the digestive system; Z88.1 Allergy status to other antibiotic agents; Z79.891 Long term (current) use of opiate analgesic; Z79.84 Long term (current) use of oral hypoglycemic drugs; Z79.899 Other long term (current) drug therapy; Z90.710 Acquired absence of both cervix and uterus
CPT/HCPCS: 36415; 49083; 71045; 74176; 80048; 80053; 81003; 82270; 82378; 82728; 82962; 83036; 83540; 83550; 83735; 83880; 84100; 84484; 85025; 86301; 86705; 86709; 86803; 86850; 86900; 86920; 87340; 93005; 99285; J2270; J2405; J3490; P9016; P9021

== ENCOUNTER → 2020-01-26 | Outpatient (CLI) | payer MEDICARE, MEDICAID ==
[~2020-01-26] MED LIST changes: +HYDR-4009 MT
== END | disposition home or self-care (01) ==
LOC: RAD 16:12
PROVIDERS: ATTEND Internal Medicine Nephrology
DX: R19.00 Intra-abdominal and pelvic swelling, mass and lump, unspecified site (principal); I51.7 Cardiomegaly
CPT/HCPCS: 71045

== ENCOUNTER 2020-01-30 22:30 | Emergency (ER) | payer MEDICARE, MEDICAID ==
[~2020-01-30] VITALS: Ht 170.2 cm; Wt 50.0 kg
[2020-01-30] MEDS ORDERED: ONDANSETRON HCL 4MG/2ML INJ IV ONE (23:15)
[2020-01-30] MEDS ORDERED: MORPHINE SULFATE 4 MG/ML CPJ (NOT FOR IM USE) IV ONE (23:15)
[2020-01-30 23:31] LABS: BASOPHILS % 0.5 % (0.0-2.0); EOSINOPHILS % 4.2 % (0.0-5.0); HEMATOCRIT. 36.5 % (36.0-48.0); HEMOGLOBIN. 12.2 g/dL (12.0-16.0); LYMPHOCYTES % 10.6 % (20.0-50.0); MEAN CORPUSCULAR HEMOGLOBIN 33.1 pg (28.0-32.0); MEAN CORPUSCULAR VOLUME 98.7 fL (81.0-99.0); MEAN PLATELET VOLUME 8.7 fl (7.4-10.4); MONOCYTES % 6.7 % (2.0-8.0); PLATELET 172 x1000/uL (130-400); RED CELL DISTRIBUTION WIDTH 15.4 % (11.6-14.6)
[2020-01-30 23:33] LABS: CHLORIDE 102 mEq/L (98-107)
[2020-01-31] MEDS ORDERED: LABETALOL 5MG/ML SYR 20 MG/4 ML SYRINGE IV ONE
[2020-01-31] MEDS ORDERED: HYDRALAZINE 20MG/ML VIAL IV ONE (01:00)
[2020-01-31] MEDS ORDERED: IOHEXOL-300 100 ML BOTTLE ONE (01:07)
[2020-01-31 01:31] LABS: CLARITY URINE CLEAR (CLEAR); COLOR URINE YELLOW (YELLOW); KETONES URINE NEGATIVE (NEGATIVE); LEUKOCYTE ESTERASE URINE NEGATIVE (NEGATIVE); NITRITE URINE NEGATIVE (NEGATIVE); OCCULT BLOOD URINE TRACE (NEGATIVE); PH URINE 7.5 (4.5-8.0); PROTEIN URINE 4+ (NEGATIVE); SPECIFIC GRAVITY URINE 1.018 (1.005-1.030); UROBILINOGEN URINE 0.2 E.U./dL (0.2-1.0)
[2020-01-31] MEDS ORDERED: ESMOLOL 2500MG PREMIX 250 ML IV NR (02:00)
[2020-01-31] MEDS ORDERED: ESMOLOL 2500MG PREMIX 250 ML IV ONE (02:00)
[2020-01-31] MEDS ORDERED: NITROPRUSSIDE 100 MG in DEXT 5% WATER 246 ML IV STA (02:48)
[2020-01-31] MEDS ORDERED: MORPHINE SULFATE 4 MG/ML CPJ (NOT FOR IM USE) IV ONE (03:00)
[2020-01-31] MEDS ORDERED: ONDANSETRON HCL 4MG/2ML INJ IV ONE (03:00)
[2020-01-31] MEDS ORDERED: NITROPRUSSIDE 100 MG in DEXT 5% WATER 246 ML IV NR (03:00)
[2020-01-31] MEDS ORDERED: METOPROLOL TARTRATE 5MG/5ML VIAL IV ONE ×2 (03:15→03:30)
[2020-01-31] MEDS ORDERED: WATER IV NR (04:00)
[2020-01-31] MEDS ORDERED: WATER IV PRN (04:00)
[2020-01-31] MEDS ORDERED: METOPROLOL TARTRATE IV PRN (04:00)
[2020-01-31] MEDS ORDERED: DEXT 5% IV NR (04:00)
[2020-01-31] MEDS ORDERED: METOPROLOL TARTRATE IV NR (04:00)
[2020-01-31] MEDS ORDERED: HYDROMORPHONE HCL/PF 2MG/ML CPJ IV ONE (04:00)
[2020-01-31] MEDS ORDERED: DEXT 5% IV PRN (04:00)
[2020-01-31 04:23] VITALS: BP 148/71
[2020-01-31] MEDS ORDERED: IOHEXOL-350 100 ML BOTTLE ONE (04:33)
== END 2020-01-31 04:31 | disposition short-term general hospital (02) ==
LOC: ER 22:30
DX: I71.00 Dissection of unspecified site of aorta (principal); I10 Essential (primary) hypertension; I48.91 Unspecified atrial fibrillation; F12.10 Cannabis abuse, uncomplicated; J44.9 Chronic obstructive pulmonary disease, unspecified; Z88.1 Allergy status to other antibiotic agents; Z79.899 Other long term (current) drug therapy
CPT/HCPCS: 36415; 71045; 71275; 74174; 74177; 80053; 81003; 83605; 83690; 84484; 85025; 93005; 96374; 96375; 96376; 99285; J0360; J1170; J2270; J2405; J3490; J7060; Q9967

== ENCOUNTER 2020-05-18 15:37 | Inpatient (IN) | payer MEDICARE, MEDICAID ==
[~2020-05-18] VITALS: Ht 172.7 cm; Wt 61.2 kg
[2020-05-18 18:52] LABS: BASOPHILS % 1.2 % (0.0-2.0); EOSINOPHILS % 1.2 % (0.0-5.0); HEMOGLOBIN. 8.7 g/dL (12.0-16.0); LYMPHOCYTES % 17.3 % (20.0-50.0); MEAN CORPUSCULAR HEMOGLOBIN 32.3 pg (28.0-32.0); MEAN CORPUSCULAR VOLUME 99.8 fL (81.0-99.0); MEAN PLATELET VOLUME 8.4 fl (7.4-10.4); MONOCYTES % 8.6 % (2.0-8.0); NEUTROPHILS % 71.7 % (40.0-76.0); PLATELET 191 x1000/uL (130-400); RED CELL DISTRIBUTION WIDTH 17.8 % (11.6-14.6)
[2020-05-18 18:54] LABS: CHLORIDE 109 mEq/L (98-107)
[2020-05-18] MEDS ORDERED: MORPHINE SULFATE 4 MG/ML CPJ (NOT FOR IM USE) IV ONE (19:00)
[2020-05-18] MEDS ORDERED: AZITHROMYCIN 500 MG in DEXT 5% WATER 250 ML IV SCH (19:30)
[2020-05-18] MEDS ORDERED: CEFTRIAXONE 1 G PREMIX 50 ML IV ONE (19:30)
[2020-05-18] MEDS ORDERED: FUROSEMIDE 100MG/10ML VIAL IV STA (19:52)
[2020-05-18] MEDS ORDERED: CALCIUM CHLORIDE 1GM/10ML SYR IV ONE (20:00)
[2020-05-18] MEDS ORDERED: DIPHENHYDRAMINE 50MG/ML VIAL IV ONE (20:15)
[2020-05-18] MEDS ORDERED: LORAZEPAM 2MG/ML CPJ IV PRN (22:00)
[2020-05-18] MEDS ORDERED: ONDANSETRON HCL 4MG/2ML INJ IV PRN (22:00)
[2020-05-18] MEDS ORDERED: IPRATROPIUM/ALBUTEROL 0.5-3(2.5)MG/3ML NEB HHN PRN (22:00)
[2020-05-18] MEDS ORDERED: ZOLPIDEM TARTRATE 5MG TABLET PO PRN (22:00)
[2020-05-18] MEDS ORDERED: ACETAMINOPHEN 325MG TABLET PO PRN ×2 (22:00)
[2020-05-18 22:20] VITALS: BP 175/121
[2020-05-18] MEDS: HYDRALAZINE HCL 50MG TABLET PO SCH (22:24)
[2020-05-18] MEDS: NIFEDIPINE XL 60MG TAB PO SCH (22:24)
[2020-05-18] MEDS: PANTOPRAZOLE 40MG DR TABLET PO SCH (22:24)
[2020-05-18] MEDS: SODIUM CHLORIDE 0.9% INJ 3ML FLUSH IVF SCH (22:25)
[2020-05-18 23:23] VITALS: BP 175/121
[2020-05-19] VITALS: BP 182/86
[2020-05-19] MEDS: IPRATROPIUM/ALBUTEROL 0.5-3(2.5)MG/3ML NEB HHN SCH ×4 (02:00→21:26)
[2020-05-19 04:00] VITALS: BP 142/69
[2020-05-19] MEDS: HYDRALAZINE HCL 50MG TABLET PO SCH ×3 (06:07→20:55)
[2020-05-19] MEDS: SODIUM CHLORIDE 0.9% INJ 3ML FLUSH IVF SCH ×3 (06:21→20:54)
[2020-05-19] MEDS: PANTOPRAZOLE 40MG DR TABLET PO SCH ×2 (06:21→20:49)
[2020-05-19 07:16] LABS: BASOPHILS % 1.3 % (0.0-2.0); EOSINOPHILS % 2.3 % (0.0-5.0); HEMATOCRIT. 25.2 % (36.0-48.0); HEMOGLOBIN. 8.2 g/dL (12.0-16.0); LYMPHOCYTES % 21.5 % (20.0-50.0); MEAN CORPUSCULAR HEMOGLOBIN 31.9 pg (28.0-32.0); MEAN CORPUSCULAR VOLUME 98.3 fL (81.0-99.0); MEAN PLATELET VOLUME 8.6 fl (7.4-10.4); MONOCYTES % 9.5 % (2.0-8.0); NEUTROPHILS % 65.4 % (40.0-76.0); PLATELET 201 x1000/uL (130-400); RED BLOOD CELL COUNT 2.56 mill/uL (4.2-5.4); RED CELL DISTRIBUTION WIDTH 17.6 % (11.6-14.6)
[2020-05-19 08:00] VITALS: BP 135/57
[2020-05-19] MEDS: NIFEDIPINE XL 60MG TAB PO SCH (09:57)
[2020-05-19 12:00] VITALS: BP 140/74
[2020-05-19] MEDS: DIPHENHYDRAMINE 50MG/ML VIAL IV PRN (12:54)
[2020-05-19 16:00] VITALS: BP 154/73
[2020-05-19] MEDS ORDERED: HEPARIN SODIUM 1,000 UNIT/1ML VIAL IV NR (17:15)
[2020-05-19 20:00] VITALS: BP 137/60
[2020-05-19] MEDS: BUDESONIDE 0.5MG/2ML NEB HHN SCH (21:25)
[2020-05-20] VITALS (7 sets, daily range): BP systolic 95–178; BP diastolic 59–82
[2020-05-20] MEDS: CLONIDINE 0.2MG TABLET PO PRN (02:25)
[2020-05-20] MEDS: IPRATROPIUM/ALBUTEROL 0.5-3(2.5)MG/3ML NEB HHN SCH ×3 (02:29→16:00)
[2020-05-20] MEDS: DIPHENHYDRAMINE 50MG/ML VIAL IV PRN ×3 (03:15→21:25)
[2020-05-20] MEDS: SODIUM CHLORIDE 0.9% INJ 3ML FLUSH IVF SCH ×3 (05:37→21:00)
[2020-05-20] MEDS: HYDRALAZINE HCL 50MG TABLET PO SCH ×3 (05:49→21:00)
[2020-05-20] MEDS: PANTOPRAZOLE 40MG DR TABLET PO SCH ×2 (06:33→20:57)
[2020-05-20] MEDS: NIFEDIPINE XL 60MG TAB PO SCH (08:58)
[2020-05-20] MEDS: BUDESONIDE 0.5MG/2ML NEB HHN SCH (09:14)
[2020-05-20] MEDS ORDERED: LIDOCAINE HCL 1% 20ML VIAL (Pyxis) INJ ONE (10:55)
[2020-05-20] MEDS ORDERED: BUPIVACAINE HCL/PF 0.5% (5MG/ML) 10ML ONE (10:55)
[2020-05-20] MEDS ORDERED: HEPARIN SODIUM 1,000 UNIT/1ML VIAL IV ONE (10:55)
[2020-05-20] MEDS ORDERED: BACITRACIN 50,000 UNITS/VIAL ONE (10:56)
[2020-05-20] MEDS ORDERED: SODIUM CHLORIDE 0.9% INJ 10ML FLUSH IVF ONE (10:56)
[2020-05-20] MEDS ORDERED: PAPAVERINE HCL 30 MG/ML 2ML IV ONE (10:56)
[2020-05-20] MEDS ORDERED: THROMBIN (BOVINE) 5000 UNITS/VIAL TOP ONE (10:56)
[2020-05-20] MEDS ORDERED: BACITRACIN 15GM TUBE TOP ONE (11:08)
[2020-05-20] MEDS ORDERED: MORPHINE SULFATE 2 MG/ML CPJ (NOT FOR IM USE) IV PRN (11:15)
[2020-05-20] MEDS ORDERED: ACETAMINOPHEN 650MG SUPP PR PRN (11:15)
[2020-05-20 11:17] LABS: BASOPHILS % 0.8 % (0.0-2.0); EOSINOPHILS % 8.5 % (0.0-5.0); HEMATOCRIT. 22.1 % (36.0-48.0); HEMOGLOBIN. 7.1 g/dL (12.0-16.0); LYMPHOCYTES % 27.4 % (20.0-50.0); MEAN CORPUSCULAR HEMOGLOBIN 31.4 pg (28.0-32.0); MEAN CORPUSCULAR VOLUME 97.5 fL (81.0-99.0); MEAN PLATELET VOLUME 8.3 fl (7.4-10.4); MONOCYTES % 9.8 % (2.0-8.0); NEUTROPHILS % 53.5 % (40.0-76.0); PLATELET 149 x1000/uL (130-400); RED BLOOD CELL COUNT 2.27 mill/uL (4.2-5.4); RED CELL DISTRIBUTION WIDTH 17.5 % (11.6-14.6)
[2020-05-20] MEDS ORDERED: ROPIVACAINE HCL 10MG/ML 20 ML VIAL EPI ONE (11:21)
[2020-05-20] MEDS ORDERED: FENTANYL CITRATE/PF 50MCG/ML 2ML VIAL ONE (11:22)
[2020-05-20] MEDS ORDERED: MIDAZOLAM HCL 2 MG/2 ML VIAL ONE (11:23)
[2020-05-20] MEDS ORDERED: GLYCOPYRROLATE 0.2 MG/ML 2ML VIAL ONE (11:23)
[2020-05-20] MEDS ORDERED: METOCLOPRAMIDE HCL 10MG/2ML VIAL ONE (11:23)
[2020-05-20] MEDS ORDERED: SUCCINYLCHOLINE CHLORIDE 200MG/10ML IV ONE (11:23)
[2020-05-20] MEDS ORDERED: ONDANSETRON HCL 4MG/2ML INJ ONE (11:23)
[2020-05-20] MEDS ORDERED: PROPOFOL 200MG/20ML VIAL IV ONE ×2 (11:23→12:02)
[2020-05-20] MEDS ORDERED: CEFAZOLIN SODIUM 1000MG/VIAL ONE (11:50)
[2020-05-20] MEDS ORDERED: ONDANSETRON HCL 4MG/2ML INJ IV PRN (12:15)
[2020-05-20] MEDS ORDERED: HYDROMORPHONE HCL/PF 2MG/ML CPJ IV PRN (12:15)
[2020-05-20] MEDS ORDERED: SODIUM CHLORIDE 0.9% 1,000 ML IV ONE (12:15)
[2020-05-20] MEDS ORDERED: HEPARIN SODIUM 1,000 UNIT/1ML VIAL IV NR (13:59)
[2020-05-20] MEDS: MORPHINE SULFATE 4 MG/ML CPJ (NOT FOR IM USE) IV PRN (15:05)
[2020-05-21] VITALS: BP 135/63
[2020-05-21 04:00] VITALS: BP 139/68
[2020-05-21] MEDS: HYDRALAZINE HCL 50MG TABLET PO SCH ×3 (05:52→21:30)
[2020-05-21] MEDS: SODIUM CHLORIDE 0.9% INJ 3ML FLUSH IVF SCH ×3 (05:52→21:31)
[2020-05-21] MEDS: PANTOPRAZOLE 40MG DR TABLET PO SCH ×2 (06:26→21:30)
[2020-05-21 08:00] VITALS: BP 141/57
[2020-05-21] MEDS: IPRATROPIUM/ALBUTEROL 0.5-3(2.5)MG/3ML NEB HHN SCH ×3 (08:00→21:55)
[2020-05-21] MEDS: BUDESONIDE 0.5MG/2ML NEB HHN SCH ×2 (08:00→21:55)
[2020-05-21] MEDS: NIFEDIPINE XL 60MG TAB PO SCH (08:04)
[2020-05-21] MEDS: MORPHINE SULFATE 4 MG/ML CPJ (NOT FOR IM USE) IV PRN ×2 (08:05→21:31)
[2020-05-21] MEDS: DIPHENHYDRAMINE 50MG/ML VIAL IV PRN ×2 (09:55→19:52)
[2020-05-21 12:00] VITALS: BP 162/60
[2020-05-21 13:25] LABS: BASOPHILS % 0.9 % (0.0-2.0); EOSINOPHILS % 12.9 % (0.0-5.0); HEMOGLOBIN. 7.7 g/dL (12.0-16.0); LYMPHOCYTES % 13.9 % (20.0-50.0); MEAN CORPUSCULAR HEMOGLOBIN 31.5 pg (28.0-32.0); MEAN CORPUSCULAR VOLUME 98.1 fL (81.0-99.0); MEAN PLATELET VOLUME 7.6 fl (7.4-10.4); MONOCYTES % 11.3 % (2.0-8.0); PLATELET 144 x1000/uL (130-400); RED BLOOD CELL COUNT 2.45 mill/uL (4.2-5.4); RED CELL DISTRIBUTION WIDTH 17.3 % (11.6-14.6)
[2020-05-21 16:00] VITALS: BP 177/84
[2020-05-21 20:00] VITALS: BP 158/52
[2020-05-22] VITALS: BP 171/80
[2020-05-22] MEDS: IPRATROPIUM/ALBUTEROL 0.5-3(2.5)MG/3ML NEB HHN SCH ×3 (02:41→15:02)
[2020-05-22 04:00] VITALS: BP 184/69
[2020-05-22] MEDS: PANTOPRAZOLE 40MG DR TABLET PO SCH (06:26)
[2020-05-22] MEDS: HYDRALAZINE HCL 50MG TABLET PO SCH (06:26)
[2020-05-22] MEDS: SODIUM CHLORIDE 0.9% INJ 3ML FLUSH IVF SCH ×2 (06:26→13:55)
[2020-05-22] MEDS: NIFEDIPINE XL 60MG TAB PO SCH (08:40)
[2020-05-22] MEDS: DIPHENHYDRAMINE 50MG/ML VIAL IV PRN (13:54)
[2020-05-22] MEDS ORDERED: HYDRALAZINE HCL 100MG TABLET PO SCH (14:00)
[2020-05-22 14:56] VITALS: BP 179/63
[2020-05-22 15:49] VITALS: BP 159/69
[2020-05-22] MEDS: CLONIDINE 0.2MG TABLET PO PRN (16:33)
== END 2020-05-22 17:08 | disposition home or self-care (01) | DRG 264 ==
LOC: ER 15:37 → 6WST 19:52 → ENRESERV 20:34
PROVIDERS: ADMIT Internal Medicine; ATTEND Internal Medicine
PROC: 03180ZD Bypass Left Brachial Artery to Upper Arm Vein, Open Approach (ICD-10-PCS; principal; 2020-05-20)
PROC: 5A1D70Z Performance of Urinary Filtration, Intermittent, Less than 6 Hours Per Day (ICD-10-PCS; 2020-05-20)
DX: T82.868A Thrombosis due to vascular prosthetic devices, implants and grafts, initial encounter (principal); J96.01 Acute respiratory failure with hypoxia; I71.02 Dissection of abdominal aorta; N18.6 End stage renal disease; I71.01 Dissection of thoracic aorta; I13.2 Hypertensive heart and chronic kidney disease with heart failure and with stage 5 chronic kidney disease, or end stage renal disease; I50.32 Chronic diastolic (congestive) heart failure; E44.0 Moderate protein-calorie malnutrition; J98.11 Atelectasis; E87.70 Fluid overload, unspecified; E87.5 Hyperkalemia; E11.22 Type 2 diabetes mellitus with diabetic chronic kidney disease; J44.9 Chronic obstructive pulmonary disease, unspecified; D63.8 Anemia in other chronic diseases classified elsewhere; K20.90 Esophagitis, unspecified without bleeding; K74.60 Unspecified cirrhosis of liver; B19.20 Unspecified viral hepatitis C without hepatic coma; D50.9 Iron deficiency anemia, unspecified; E87.8 Other disorders of electrolyte and fluid balance, not elsewhere classified; D72.819 Decreased white blood cell count, unspecified; I27.20 Pulmonary hypertension, unspecified; K29.80 Duodenitis without bleeding; R19.00 Intra-abdominal and pelvic swelling, mass and lump, unspecified site; F17.210 Nicotine dependence, cigarettes, uncomplicated; Y83.8 Other surgical procedures as the cause of abnormal reaction of the patient, or of later complication, without mention of misadventure at the time of the procedure; K29.70 Gastritis, unspecified, without bleeding; N83.209 Unspecified ovarian cyst, unspecified side; Z20.828 Contact with and (suspected) exposure to other viral communicable diseases; Z82.49 Family history of ischemic heart disease and other diseases of the circulatory system; Z90.710 Acquired absence of both cervix and uterus; Z99.2 Dependence on renal dialysis; Z87.19 Personal history of other diseases of the digestive system; Z68.20 Body mass index [BMI] 20.0-20.9, adult; Z79.899 Other long term (current) drug therapy; Y92.89 Other specified places as the place of occurrence of the external cause
CPT/HCPCS: 36415; 71045; 80048; 80053; 82962; 83605; 83880; 84550; 85025; 86850; 86900; 87426; 93005; 93970; 99291; J0330; J0456; J0690; J0696; J1200; J1644; J1940; J2250; J2270; J2405; J2440; J2704; J2765; J2795; J3010; J3490; J7060; J7626

== ENCOUNTER → 2020-09-02 | Outpatient (CLI) | payer MEDICARE, MEDICAID ==
[~2020-09-02] MED LIST changes: +CARV12.545 PO; +CLON0.1T PO; +FERR324T4 PO; -FERR325T23 PO; +HYDR100T26 PO; -OMEP20CA14 MT; -SILD20TA PO
== END | disposition home or self-care (01) ==
LOC: LAB 08:50
PROVIDERS: ATTEND Surgery Vascular Surgery
DX: Z20.822 Contact with and (suspected) exposure to COVID-19 (principal); N18.6 End stage renal disease
CPT/HCPCS: 87426

== ENCOUNTER → 2020-09-02 | Day surgery (SDC) | payer MEDICARE, MEDICAID ==
[~2020-09-02] VITALS: Ht 165.1 cm; Wt 45.4 kg
[~2020-09-02] MED LIST changes: +BACITRACIN 15GM TUBE TOP ONE; +BACITRACIN 50,000 UNITS/VIAL ONE; +BUPIVACAINE HCL/PF 0.5% (5MG/ML) 10ML ONE; +HEPARIN SODIUM 1,000 UNIT/1ML VIAL IV ONE; +LIDOCAINE HCL 1% 20ML VIAL (Pyxis) INJ ONE; +SODIUM CHLORIDE 0.9% 1,000 ML IV SCH; +THROMBIN (BOVINE) 5000 UNITS/VIAL TOP ONE
[2020-09-02 10:34] LABS: BASOPHILS % 1.1 % (0.0-2.0); EOSINOPHILS % 9.3 % (0.0-5.0); LYMPHOCYTES % 16.5 % (20.0-50.0); MEAN CORPUSCULAR HEMOGLOBIN 32.5 pg (28.0-32.0); MEAN CORPUSCULAR VOLUME 97.2 fL (81.0-99.0); MONOCYTES % 11.4 % (2.0-8.0); NEUTROPHILS % 61.7 % (40.0-76.0); PLATELET 127 x1000/uL (130-400); RED BLOOD CELL COUNT 1.88 mill/uL (4.2-5.4); RED CELL DISTRIBUTION WIDTH 18.6 % (11.6-14.6)
[2020-09-02 10:39] LABS: HEMATOCRIT. 18.2 % (36.0-48.0); HEMOGLOBIN. 6.1 g/dL (12.0-16.0)
[2020-09-02 10:43] LABS: PARTIAL THROMBOPLASTIN TIME 30.5 sec (23.4-31.0); PROTHROMBIN TIME 10.4 sec (9.6-11.0)
[2020-09-02 11:07] LABS: HEMOGLOBIN 5.9 g/dL (12.0-16.0)
[2020-09-02 11:08] LABS: HEMATOCRIT 17.5 % (36.0-48.0)
== END | disposition home or self-care (01) ==
LOC: OR 09:39
PROVIDERS: ATTEND Surgery Vascular Surgery
DX: N18.6 End stage renal disease (principal); Z53.8 Procedure and treatment not carried out for other reasons; Z79.899 Other long term (current) drug therapy; F17.210 Nicotine dependence, cigarettes, uncomplicated; Z88.1 Allergy status to other antibiotic agents
CPT/HCPCS: 36415; 80048; 85014; 85018; 85025; 85610; 85730; 93005; J7040; J1644; J3490

== ENCOUNTER 2020-09-03 19:17 | Inpatient (IN) | payer MEDICARE, MEDICAID ==
[~2020-09-03] VITALS: Ht 165.1 cm; Wt 52.3 kg
[~2020-09-03 19:17] MED LIST changes: -ALLO100T PO; -BACITRACIN 15GM TUBE TOP ONE; -BACITRACIN 50,000 UNITS/VIAL ONE; -BUPIVACAINE HCL/PF 0.5% (5MG/ML) 10ML ONE; -FURO40TA5 PO; -HEPARIN SODIUM 1,000 UNIT/1ML VIAL IV ONE; -HYDR-4009 MT; -HYDR-4135 PO; -LIDOCAINE HCL 1% 20ML VIAL (Pyxis) INJ ONE; -NIFE-32 PO; -SODIUM CHLORIDE 0.9% 1,000 ML IV SCH; -THROMBIN (BOVINE) 5000 UNITS/VIAL TOP ONE
[2020-09-03 20:23] LABS: BASOPHILS % 1.2 % (0.0-2.0); EOSINOPHILS % 9.6 % (0.0-5.0); MEAN CORPUSCULAR HEMOGLOBIN 32.3 pg (28.0-32.0); MEAN CORPUSCULAR VOLUME 98.5 fL (81.0-99.0); MEAN PLATELET VOLUME 8.4 fl (7.4-10.4); MONOCYTES % 10.4 % (2.0-8.0); NEUTROPHILS % 60.8 % (40.0-76.0); PLATELET 140 x1000/uL (130-400); RED CELL DISTRIBUTION WIDTH 18.3 % (11.6-14.6)
[2020-09-03 20:25] LABS: HEMOGLOBIN. 6.1 g/dL (12.0-16.0)
[2020-09-03 20:26] LABS: HEMATOCRIT. 18.7 % (36.0-48.0)
[2020-09-03 20:34] LABS: PROTHROMBIN TIME 10.6 sec (9.6-11.0)
[2020-09-03 20:36] LABS: CHLORIDE 107 mEq/L (98-107)
[2020-09-03] MEDS ORDERED: CLONIDINE 0.1MG TABLET PO ONE (20:45)
[2020-09-03] MEDS ORDERED: ACETAMINOPHEN 325MG TABLET PO PRN (22:30)
[2020-09-03] MEDS ORDERED: LORAZEPAM 2MG/ML CPJ IV PRN (22:30)
[2020-09-03] MEDS ORDERED: ONDANSETRON HCL 4MG/2ML INJ IV PRN (22:30)
[2020-09-03] MEDS ORDERED: DIPHENHYDRAMINE 50MG/ML VIAL IV ONE (22:30)
[2020-09-03] MEDS ORDERED: IPRATROPIUM/ALBUTEROL 0.5-3(2.5)MG/3ML NEB NEB PRN (22:30)
[2020-09-03] MEDS: METOPROLOL TARTRATE 25MG TABLET PO SCH (23:23)
[2020-09-03] MEDS: FERROUS SULFATE 325MG TABLET PO SCH (23:23)
[2020-09-04] VITALS (11 sets, daily range): BP systolic 169–204; BP diastolic 80–99
[2020-09-04 03:50] LABS: BASOPHILS % 1.3 % (0.0-2.0); EOSINOPHILS % 8.8 % (0.0-5.0); LYMPHOCYTES % 21.8 % (20.0-50.0); MEAN CORPUSCULAR HEMOGLOBIN 31.9 pg (28.0-32.0); MEAN CORPUSCULAR VOLUME 96.3 fL (81.0-99.0); MEAN PLATELET VOLUME 8.3 fl (7.4-10.4); MONOCYTES % 10.6 % (2.0-8.0); NEUTROPHILS % 57.5 % (40.0-76.0); PLATELET 121 x1000/uL (130-400); RED BLOOD CELL COUNT 2.11 mill/uL (4.2-5.4); RED CELL DISTRIBUTION WIDTH 18.5 % (11.6-14.6)
[2020-09-04 04:05] LABS: HEMATOCRIT. 20.3 % (36.0-48.0); HEMOGLOBIN. 6.7 g/dL (12.0-16.0); PHOSPHORUS 5.5 mg/dL (2.5-4.9)
[2020-09-04] MEDS: CLONIDINE 0.1MG TABLET PO PRN ×2 (06:20→12:09)
[2020-09-04] MEDS ORDERED: ENOXAPARIN 30MG/0.3ML SYR SUBCUT SCH (09:00)
[2020-09-04] MEDS: FERROUS SULFATE 325MG TABLET PO SCH (09:58)
[2020-09-04] MEDS: MORPHINE SULFATE 2 MG/ML CPJ (NOT FOR IM USE) IV PRN (09:58)
[2020-09-04] MEDS: THIAMINE HCL 100MG TABLET PO SCH (09:59)
[2020-09-04] MEDS: LISINOPRIL 10MG TABLET PO SCH (09:59)
[2020-09-04] MEDS: METOPROLOL TARTRATE 25MG TABLET PO SCH (13:04)
[2020-09-04] MEDS ORDERED: METOPROLOL TARTRATE 25MG TABLET PO NR (13:20)
[2020-09-04] MEDS: DIPHENHYDRAMINE 50MG/ML VIAL IV PRN ×2 (13:29→21:42)
[2020-09-04] MEDS: CLONIDINE 0.2MG TABLET PO SCH ×2 (15:50→21:18)
[2020-09-04] MEDS ORDERED: SORBITOL 70% SOLN 30ML PO NR (17:45)
[2020-09-04] MEDS ORDERED: BISACODYL 5MG TABLET PO NR (18:15)
[2020-09-04] MEDS ORDERED: METOCLOPRAMIDE HCL 10MG TABLET PO NR (18:15)
[2020-09-04 18:34] LABS: TOTAL IRON BINDING CAPACITY 239 ug/dL (250-450)
[2020-09-04 18:55] LABS: FOLIC ACID (FOLATE) SERUM 16.1 ng/mL (>5.38)
[2020-09-04 20:15] LABS: HEMATOCRIT 30.6 % (36.0-48.0); HEMOGLOBIN 10.3 g/dL (12.0-16.0)
[2020-09-04] MEDS: SUCRALFATE 1 G/10 ML UDC PO SCH (21:18)
[2020-09-04] MEDS: METOPROLOL TARTRATE 50MG TABLET PO SCH (21:19)
[2020-09-04] MEDS: IRON SUCROSE COMPLEX 100 MG/5 ML ML IV SCH (21:19)
[2020-09-05] VITALS (7 sets, daily range): BP systolic 163–204; BP diastolic 81–97
[2020-09-05] MEDS: CLONIDINE 0.1MG TABLET PO PRN ×2 (01:49→17:17)
[2020-09-05] MEDS: CLONIDINE 0.2MG TABLET PO SCH ×3 (05:58→20:54)
[2020-09-05] MEDS: SORBITOL 70% SOLN 30ML PO NR ×3 (05:58→17:27)
[2020-09-05] MEDS: SUCRALFATE 1 G/10 ML UDC PO SCH ×4 (05:59→20:52)
[2020-09-05 07:10] LABS: CHLORIDE 105 mEq/L (98-107)
[2020-09-05 07:15] LABS: BASOPHILS % 1.3 % (0.0-2.0); EOSINOPHILS % 9.6 % (0.0-5.0); HEMATOCRIT. 31.6 % (36.0-48.0); HEMOGLOBIN. 10.7 g/dL (12.0-16.0); LYMPHOCYTES % 16.8 % (20.0-50.0); MEAN CORPUSCULAR HEMOGLOBIN 31.3 pg (28.0-32.0); MEAN CORPUSCULAR VOLUME 92.1 fL (81.0-99.0); MEAN PLATELET VOLUME 8.8 fl (7.4-10.4); NEUTROPHILS % 62.3 % (40.0-76.0); PLATELET 118 x1000/uL (130-400); RED BLOOD CELL COUNT 3.42 mill/uL (4.2-5.4); RED CELL DISTRIBUTION WIDTH 17.3 % (11.6-14.6)
[2020-09-05] MEDS: METOPROLOL TARTRATE 50MG TABLET PO SCH ×2 (10:08→20:53)
[2020-09-05] MEDS: THIAMINE HCL 100MG TABLET PO SCH (10:09)
[2020-09-05] MEDS: FERROUS SULFATE 325MG TABLET PO SCH (10:09)
[2020-09-05] MEDS: PANTOPRAZOLE SODIUM 40 MG/VIAL IV SCH (10:09)
[2020-09-05] MEDS: LISINOPRIL 10MG TABLET PO SCH (10:09)
[2020-09-05] MEDS: DIPHENHYDRAMINE 50MG/ML VIAL IV PRN (12:10)
[2020-09-05] MEDS: IRON SUCROSE COMPLEX 100 MG/5 ML ML IV SCH (20:52)
[2020-09-05] MEDS: DEXT 5%/0.9% NACL 1,000 ML IV SCH (22:11)
[2020-09-05] MEDS ORDERED: HYDRALAZINE 20MG/ML VIAL IV PRN (23:45)
[2020-09-06] VITALS: BP 167/91
[2020-09-06] MEDS: HYDRALAZINE HCL 50MG TABLET PO SCH ×4 (00:18→21:31)
[2020-09-06] MEDS: DIPHENHYDRAMINE 50MG/ML VIAL IV PRN ×2 (03:27→19:50)
[2020-09-06 04:00] VITALS: BP 139/67
[2020-09-06 05:10] LABS: CHLORIDE 105 mEq/L (98-107)
[2020-09-06 05:21] LABS: HEMATOCRIT. 31.7 % (36.0-48.0); HEMOGLOBIN. 10.6 g/dL (12.0-16.0); MEAN CORPUSCULAR HEMOGLOBIN 31.6 pg (28.0-32.0); MEAN CORPUSCULAR VOLUME 94.7 fL (81.0-99.0); MEAN PLATELET VOLUME 9.1 fl (7.4-10.4); PLATELET 112 x1000/uL (130-400); RED BLOOD CELL COUNT 3.35 mill/uL (4.2-5.4); RED CELL DISTRIBUTION WIDTH 16.8 % (11.6-14.6)
[2020-09-06] MEDS: SUCRALFATE 1 G/10 ML UDC PO SCH ×2 (05:43→11:26)
[2020-09-06] MEDS: CLONIDINE 0.2MG TABLET PO SCH ×3 (05:43→21:31)
[2020-09-06 06:13] LABS: PROTHROMBIN TIME 10.9 sec (9.6-11.0)
[2020-09-06 08:00] VITALS: BP 158/72
[2020-09-06] MEDS: PANTOPRAZOLE SODIUM 40 MG/VIAL IV SCH (08:45)
[2020-09-06] MEDS: FERROUS SULFATE 325MG TABLET PO SCH (08:46)
[2020-09-06] MEDS: METOPROLOL TARTRATE 50MG TABLET PO SCH ×2 (08:46→20:40)
[2020-09-06] MEDS: THIAMINE HCL 100MG TABLET PO SCH (08:46)
[2020-09-06] MEDS: LISINOPRIL 40MG TABLET PO SCH (08:46)
[2020-09-06] MEDS: MORPHINE SULFATE 2 MG/ML CPJ (NOT FOR IM USE) IV PRN (08:47)
[2020-09-06 12:00] VITALS: BP 159/77
[2020-09-06] MEDS ORDERED: FENTANYL CITRATE/PF 50MCG/ML 2ML VIAL ONE (13:21)
[2020-09-06] MEDS ORDERED: MIDAZOLAM HCL 5 MG/5 ML VIAL ONE (13:21)
[2020-09-06] MEDS ORDERED: FENTANYL CITRATE/PF 50MCG/ML 2ML VIAL IV PRN (13:23)
[2020-09-06] MEDS ORDERED: MIDAZOLAM HCL 5 MG/5 ML VIAL IV PRN (13:24)
[2020-09-06] MEDS ORDERED: DIAZEPAM 5 MG/ML 2ML CPJ ONE (13:32)
[2020-09-06] MEDS: DEXT 5%/0.9% NACL 1,000 ML IV SCH (15:18)
[2020-09-06 15:30] VITALS: BP 180/78
[2020-09-06 16:45] LABS: PLATELET ESTIMATE DECREASED
[2020-09-06 20:00] VITALS: BP 162/83
[2020-09-06] MEDS: IRON SUCROSE COMPLEX 100 MG/5 ML ML IV SCH (20:40)
[2020-09-07] VITALS: BP 189/74
[2020-09-07] MEDS: DIPHENHYDRAMINE 50MG/ML VIAL IV PRN ×2 (02:40→09:08)
[2020-09-07 04:00] VITALS: BP 157/85
[2020-09-07] MEDS: HYDRALAZINE HCL 50MG TABLET PO SCH (05:40)
[2020-09-07] MEDS: CLONIDINE 0.2MG TABLET PO SCH (05:40)
[2020-09-07 08:00] VITALS: BP 168/68
[2020-09-07] MEDS: FERROUS SULFATE 325MG TABLET PO SCH (09:08)
[2020-09-07] MEDS: PANTOPRAZOLE SODIUM 40 MG/VIAL IV SCH (09:08)
[2020-09-07] MEDS: THIAMINE HCL 100MG TABLET PO SCH (09:08)
[2020-09-07] MEDS: METOPROLOL TARTRATE 50MG TABLET PO SCH (09:10)
[2020-09-07] MEDS: LISINOPRIL 40MG TABLET PO SCH (09:11)
[2020-09-07 10:29] VITALS: BP 158/68
== END 2020-09-07 11:35 | disposition home or self-care (01) | DRG 811 ==
LOC: ER 19:17 → 5WST 20:55 → ENRESERV 09-04 08:27 → 5WST 09-04 19:00
PROVIDERS: ADMIT Internal Medicine Nephrology; ATTEND Internal Medicine Nephrology
PROC: 30233N1 Transfusion of Nonautologous Red Blood Cells into Peripheral Vein, Percutaneous Approach (ICD-10-PCS; principal; 2020-09-04)
PROC: 0DB68ZX Excision of Stomach, Via Natural or Artificial Opening Endoscopic, Diagnostic (ICD-10-PCS; 2020-09-06)
DX: D50.9 Iron deficiency anemia, unspecified (principal); E43 Unspecified severe protein-calorie malnutrition; N18.6 End stage renal disease; I13.2 Hypertensive heart and chronic kidney disease with heart failure and with stage 5 chronic kidney disease, or end stage renal disease; K22.10 Ulcer of esophagus without bleeding; R18.8 Other ascites; D61.818 Other pancytopenia; J91.8 Pleural effusion in other conditions classified elsewhere; Z68.1 Body mass index [BMI] 19.9 or less, adult; K29.70 Gastritis, unspecified, without bleeding; K74.60 Unspecified cirrhosis of liver; B19.20 Unspecified viral hepatitis C without hepatic coma; D63.8 Anemia in other chronic diseases classified elsewhere; F17.200 Nicotine dependence, unspecified, uncomplicated; I27.20 Pulmonary hypertension, unspecified; I50.9 Heart failure, unspecified; J44.9 Chronic obstructive pulmonary disease, unspecified; K29.80 Duodenitis without bleeding; K57.30 Diverticulosis of large intestine without perforation or abscess without bleeding; Z20.822 Contact with and (suspected) exposure to COVID-19; N83.209 Unspecified ovarian cyst, unspecified side; K44.9 Diaphragmatic hernia without obstruction or gangrene; Z99.2 Dependence on renal dialysis; Z88.8 Allergy status to other drugs, medicaments and biological substances; Z79.891 Long term (current) use of opiate analgesic; Z79.899 Other long term (current) drug therapy
CPT/HCPCS: 36415; 71045; 76705; 80048; 80053; 82040; 82607; 82728; 82746; 82962; 83540; 83550; 83970; 84100; 85014; 85018; 85025; 86850; 86900; 86920; 87426; 88305; 88313; 93005; 96374; 99285; C9113; J1200; J1644; J2250; J2270; J2405; J3010; J3490; J7040; J7042; J8597; P9016; P9021

== ENCOUNTER 2020-09-21 21:11 | Inpatient (IN) | payer MEDICARE, MEDICAID ==
[~2020-09-21] VITALS: Ht 165.1 cm; Wt 50.8 kg
[~2020-09-21 21:11] MED LIST changes: -FERR324T4 PO
[2020-09-21 22:47] LABS: BASOPHILS % 1.1 % (0.0-2.0); EOSINOPHILS % 6.5 % (0.0-5.0); LYMPHOCYTES % 19.8 % (20.0-50.0); MEAN CORPUSCULAR HEMOGLOBIN 32.3 pg (28.0-32.0); MEAN CORPUSCULAR VOLUME 102.4 fL (81.0-99.0); MEAN PLATELET VOLUME 8.6 fl (7.4-10.4); MONOCYTES % 10.2 % (2.0-8.0); NEUTROPHILS % 62.4 % (40.0-76.0); PLATELET 102 x1000/uL (130-400); RED BLOOD CELL COUNT 1.84 mill/uL (4.2-5.4); RED CELL DISTRIBUTION WIDTH 19.3 % (11.6-14.6)
[2020-09-21 22:54] LABS: CHLORIDE 102 mEq/L (98-107)
[2020-09-21 22:56] LABS: PROTHROMBIN TIME 10.6 sec (9.6-11.0)
[2020-09-21 22:59] LABS: HEMATOCRIT. 18.8 % (36.0-48.0); HEMOGLOBIN. 5.9 g/dL (12.0-16.0)
[2020-09-21] MEDS ORDERED: MORPHINE SULFATE 2 MG/ML CPJ (NOT FOR IM USE) IV PRN (23:15)
[2020-09-21] MEDS ORDERED: ONDANSETRON HCL 4MG/2ML INJ IV PRN (23:15)
[2020-09-21] MEDS ORDERED: ACETAMINOPHEN 325MG TABLET PO PRN (23:15)
[2020-09-21] MEDS ORDERED: CLONIDINE 0.1MG TABLET PO PRN (23:15)
[2020-09-21] MEDS ORDERED: LORAZEPAM 2MG/ML CPJ IV PRN (23:15)
[2020-09-21] MEDS ORDERED: IPRATROPIUM/ALBUTEROL 0.5-3(2.5)MG/3ML NEB NEB PRN (23:15)
[2020-09-21] MEDS ORDERED: HYDROCODONE/APAP 7.5/325MG 1 TAB TABLET PO PRN (23:15)
[2020-09-22] MEDS ORDERED: DIPHENHYDRAMINE 50MG CAPSULE PO ONE
[2020-09-22] MEDS ORDERED: HYDROCODONE/ACETAMINOPHEN 5/325MG TABLET PO ONE (00:30)
[2020-09-22 03:15] VITALS: BP 132/63
[2020-09-22] MEDS ORDERED: AMLODIPINE 10MG TABLET PO SCH (09:00)
[2020-09-22] MEDS ORDERED: LISINOPRIL 10MG TABLET PO SCH (09:00)
[2020-09-22] MEDS ORDERED: FERROUS SULFATE 325MG TABLET PO SCH (09:00)
[2020-09-22] MEDS ORDERED: LORAZEPAM 2MG/ML CPJ IV PRN (09:45)
[2020-09-22] MEDS ORDERED: IPRATROPIUM/ALBUTEROL 0.5-3(2.5)MG/3ML NEB NEB PRN (09:45)
[2020-09-22] MEDS ORDERED: HYDROCODONE/APAP 7.5/325MG 1 TAB TABLET PO PRN (09:45)
[2020-09-22] MEDS ORDERED: MORPHINE SULFATE 2 MG/ML CPJ (NOT FOR IM USE) IV PRN (09:45)
[2020-09-22] MEDS ORDERED: ACETAMINOPHEN 325MG TABLET PO PRN (09:45)
[2020-09-22] MEDS ORDERED: CLONIDINE 0.1MG TABLET PO PRN (09:45)
[2020-09-22] MEDS ORDERED: ONDANSETRON HCL 4MG/2ML INJ IV PRN (09:45)
[2020-09-22] MEDS ORDERED: ENOXAPARIN 30MG/0.3ML SYR SUBCUT SCH ×2 (10:00→21:00)
[2020-09-22] MEDS: LISINOPRIL 10MG TABLET PO SCH (10:29)
[2020-09-22] MEDS: AMLODIPINE 10MG TABLET PO SCH (10:29)
[2020-09-22] MEDS: FERROUS SULFATE 325MG TABLET PO SCH (11:42)
[2020-09-22] MEDS: DIPHENHYDRAMINE 50MG/ML VIAL IV PRN ×2 (11:42→18:19)
[2020-09-22 12:56] LABS: HEMATOCRIT 21.5 % (36.0-48.0); HEMOGLOBIN 7.1 g/dL (12.0-16.0)
[2020-09-22] MEDS: OMEPRAZOLE 20MG CAPSULE EXTENDED RELEASE PO SCH (13:26)
[2020-09-22] MEDS ORDERED: POTASSIUM CHLORIDE 20MEQ TABLET SR PO SCH (14:00)
[2020-09-22] MEDS ORDERED: BISACODYL 5MG TABLET PO NR (15:30)
[2020-09-22] MEDS ORDERED: METOCLOPRAMIDE HCL 10MG/2ML VIAL IV NR (15:30)
[2020-09-22] MEDS ORDERED: POLYETHYLENE GLYCOL-ELECTROLYTE 4000ML PO NR ×2 (16:00→20:30)
[2020-09-22] MEDS ORDERED: BISACODYL 5MG TABLET PO ONE (20:00)
[2020-09-22] MEDS ORDERED: METOCLOPRAMIDE HCL 10MG/2ML VIAL IV ONE (20:00)
[2020-09-23] VITALS: BP 129/60
[2020-09-23 04:00] VITALS: BP 153/64
[2020-09-23] MEDS: DIPHENHYDRAMINE 50MG/ML VIAL IV PRN ×2 (05:31→13:00)
[2020-09-23 07:07] LABS: BASOPHILS % 0.6 % (0.0-2.0); EOSINOPHILS % 5.9 % (0.0-5.0); HEMATOCRIT. 22.6 % (36.0-48.0); HEMOGLOBIN. 7.5 g/dL (12.0-16.0); LYMPHOCYTES % 21.3 % (20.0-50.0); MEAN CORPUSCULAR HEMOGLOBIN 32.1 pg (28.0-32.0); MEAN CORPUSCULAR VOLUME 96.6 fL (81.0-99.0); MEAN PLATELET VOLUME 9.3 fl (7.4-10.4); MONOCYTES % 8.1 % (2.0-8.0); NEUTROPHILS % 64.1 % (40.0-76.0); PLATELET 122 x1000/uL (130-400); RED BLOOD CELL COUNT 2.34 mill/uL (4.2-5.4); RED CELL DISTRIBUTION WIDTH 20.5 % (11.6-14.6)
[2020-09-23 08:23] LABS: TOTAL IRON BINDING CAPACITY 180 ug/dL (250-450)
[2020-09-23 08:44] LABS: FOLIC ACID (FOLATE) SERUM 10.8 ng/mL (>5.38)
[2020-09-23] MEDS: FERROUS SULFATE 325MG TABLET PO SCH (08:49)
[2020-09-23] MEDS: LISINOPRIL 10MG TABLET PO SCH (08:49)
[2020-09-23] MEDS: OMEPRAZOLE 20MG CAPSULE EXTENDED RELEASE PO SCH (08:49)
[2020-09-23] MEDS: AMLODIPINE 10MG TABLET PO SCH (08:50)
[2020-09-23] MEDS ORDERED: MAGNESIUM CITRATE 300ML SOLUTION PO SCH (13:00)
[2020-09-23 16:00] VITALS: BP 174/85
[2020-09-23] MEDS ORDERED: OMEP20CA14 MT (16:57)
[2020-09-23 18:38] VITALS: BP 155/58
[2020-10-11] MEDS ORDERED: FERR325T23 MT (17:29)
[2020-10-11] MEDS ORDERED: DOCU250C14 MT (17:29)
== END 2020-09-23 19:00 | disposition home or self-care (01) | DRG 811 ==
LOC: ER 21:11 → 8WST 23:15 → ENRESERV 23:39 → ER 09-22 02:38
PROVIDERS: ADMIT Internal Medicine Nephrology; ATTEND Internal Medicine Nephrology
PROC: 30233N1 Transfusion of Nonautologous Red Blood Cells into Peripheral Vein, Percutaneous Approach (ICD-10-PCS; principal; 2020-09-22)
DX: D53.9 Nutritional anemia, unspecified (principal); E43 Unspecified severe protein-calorie malnutrition; I50.33 Acute on chronic diastolic (congestive) heart failure; N18.6 End stage renal disease; D61.818 Other pancytopenia; I13.2 Hypertensive heart and chronic kidney disease with heart failure and with stage 5 chronic kidney disease, or end stage renal disease; B19.20 Unspecified viral hepatitis C without hepatic coma; D50.9 Iron deficiency anemia, unspecified; E83.51 Hypocalcemia; E87.6 Hypokalemia; F17.210 Nicotine dependence, cigarettes, uncomplicated; I27.20 Pulmonary hypertension, unspecified; J44.9 Chronic obstructive pulmonary disease, unspecified; K29.80 Duodenitis without bleeding; K44.9 Diaphragmatic hernia without obstruction or gangrene; K57.30 Diverticulosis of large intestine without perforation or abscess without bleeding; K74.60 Unspecified cirrhosis of liver; F19.10 Other psychoactive substance abuse, uncomplicated; K29.70 Gastritis, unspecified, without bleeding; Z20.822 Contact with and (suspected) exposure to COVID-19; Z90.710 Acquired absence of both cervix and uterus; Z99.2 Dependence on renal dialysis; Z79.891 Long term (current) use of opiate analgesic; Z79.899 Other long term (current) drug therapy
CPT/HCPCS: 36415; 71045; 76700; 80048; 80053; 82607; 82728; 82746; 83540; 83550; 85014; 85018; 85025; 85044; 86850; 86900; 86920; 87426; 93005; 99291; J1200; J1650; J2765; P9016; Q0163

== ENCOUNTER → 2020-12-09 | Outpatient (CLI) | payer MEDICARE, MEDICAID ==
[~2020-12-09] MED LIST changes: +DOCU250C14 MT; +FERR325T23 MT; +OMEP20CA14 MT
== END | disposition home or self-care (01) ==
LOC: LAB 09:07
PROVIDERS: ATTEND Surgery Vascular Surgery
DX: Z01.812 Encounter for preprocedural laboratory examination (principal); N18.6 End stage renal disease; Z20.822 Contact with and (suspected) exposure to COVID-19
CPT/HCPCS: 87426

== ENCOUNTER → 2020-12-09 | Day surgery (SDC) | payer MEDICARE, MEDICAID ==
[~2020-12-09] VITALS: Ht 165.1 cm; Wt 45.4 kg
[~2020-12-09] MED LIST changes: +BACITRACIN 15GM TUBE TOP ONE; +BUPIVACAINE HCL 0.5% (5MG/ML) 50ML ONE; +FENTANYL CITRATE/PF 50MCG/ML 2ML VIAL ONE; +HEPARIN 1000 UNITS/ML 10ML ONE; +HEPARIN SODIUM 1,000 UNIT/1ML VIAL IV NR; +HEPARIN SODIUM 1,000 UNIT/1ML VIAL IV ONE; +HYDRALAZINE 20MG/ML VIAL ONE; +HYDROMORPHONE HCL/PF 2MG/ML CPJ IV PRN; +LIDOCAINE HCL 1% 20ML VIAL (Pyxis) INJ ONE; +MEPERIDINE HCL/PF 25MG/ML CPJ IV PRN; +MIDAZOLAM HCL 2 MG/2 ML VIAL ONE; +MORPHINE SULFATE 2 MG/ML CPJ (NOT FOR IM USE) IV PRN; +ONDANSETRON HCL 4MG/2ML INJ IV PRN; +ONDANSETRON HCL 4MG/2ML INJ ONE; +POLYMYXIN B SULFATE 500000 UNITS/VIAL ONE; +SODIUM CHLORIDE 0.9% 1,000 ML IV ONE; +SODIUM CHLORIDE 0.9% 500 ML IV ONE; +SODIUM CHLORIDE 0.9% INJ 10ML FLUSH IVF ONE; +THROMBIN (BOVINE) 5000 UNITS/VIAL TOP ONE
[2020-12-09 10:25] LABS: BASOPHILS % 1.2 % (0.0-2.0); EOSINOPHILS % 4.9 % (0.0-5.0); HEMATOCRIT. 21.7 % (36.0-48.0); HEMOGLOBIN. 7.3 g/dL (12.0-16.0); LYMPHOCYTES % 19.7 % (20.0-50.0); MEAN CORPUSCULAR HEMOGLOBIN 31.7 pg (28.0-32.0); MEAN CORPUSCULAR VOLUME 94.6 fL (81.0-99.0); MEAN PLATELET VOLUME 7.9 fl (7.4-10.4); MONOCYTES % 11.7 % (2.0-8.0); NEUTROPHILS % 62.5 % (40.0-76.0); PLATELET 86 x1000/uL (130-400)
[2020-12-09 10:33] LABS: PARTIAL THROMBOPLASTIN TIME 33.9 sec (23.4-31.0)
== END | disposition home or self-care (01) ==
LOC: OR 09:59
PROVIDERS: ATTEND Surgery Vascular Surgery
DX: I77.0 Arteriovenous fistula, acquired (principal); N18.6 End stage renal disease; Z87.891 Personal history of nicotine dependence; Z79.899 Other long term (current) drug therapy; Z98.890 Other specified postprocedural states; Z82.49 Family history of ischemic heart disease and other diseases of the circulatory system; Z83.3 Family history of diabetes mellitus
CPT/HCPCS: 36415; 36819; 80048; 85025; 85610; 85730; 86850; 86900; 86901; 86920; 93005; J0360; J1644; J2250; J2405; J3010; J3490; J7040; J7120; A4565

== ENCOUNTER 2021-01-01 15:50 | Inpatient (IN) | payer MEDICARE, MEDICAID ==
[~2021-01-01] VITALS: Ht 165.1 cm; Wt 52.6 kg
[~2021-01-01 15:50] MED LIST changes: -BACITRACIN 15GM TUBE TOP ONE; -BUPIVACAINE HCL 0.5% (5MG/ML) 50ML ONE; -FENTANYL CITRATE/PF 50MCG/ML 2ML VIAL ONE; -HEPARIN 1000 UNITS/ML 10ML ONE; -HEPARIN SODIUM 1,000 UNIT/1ML VIAL IV NR; -HEPARIN SODIUM 1,000 UNIT/1ML VIAL IV ONE; -HYDRALAZINE 20MG/ML VIAL ONE; -HYDROMORPHONE HCL/PF 2MG/ML CPJ IV PRN; -LIDOCAINE HCL 1% 20ML VIAL (Pyxis) INJ ONE; -MEPERIDINE HCL/PF 25MG/ML CPJ IV PRN; -MIDAZOLAM HCL 2 MG/2 ML VIAL ONE; -MORPHINE SULFATE 2 MG/ML CPJ (NOT FOR IM USE) IV PRN; -ONDANSETRON HCL 4MG/2ML INJ IV PRN; -ONDANSETRON HCL 4MG/2ML INJ ONE; -POLYMYXIN B SULFATE 500000 UNITS/VIAL ONE; -SODIUM CHLORIDE 0.9% 1,000 ML IV ONE; -SODIUM CHLORIDE 0.9% 500 ML IV ONE; -SODIUM CHLORIDE 0.9% INJ 10ML FLUSH IVF ONE; -THROMBIN (BOVINE) 5000 UNITS/VIAL TOP ONE
[2021-01-01] MEDS ORDERED: DIPHENHYDRAMINE 50MG/ML VIAL IV ONE (16:30)
[2021-01-01 16:37] LABS: BASOPHILS % 1.1 % (0.0-2.0); EOSINOPHILS % 4.9 % (0.0-5.0); LYMPHOCYTES % 20.1 % (20.0-50.0); MEAN CORPUSCULAR HEMOGLOBIN 34.7 pg (28.0-32.0); MEAN CORPUSCULAR VOLUME 105.8 fL (81.0-99.0); MEAN PLATELET VOLUME 7.6 fl (7.4-10.4); MONOCYTES % 9.5 % (2.0-8.0); NEUTROPHILS % 64.4 % (40.0-76.0); PLATELET 183 x1000/uL (130-400); RED CELL DISTRIBUTION WIDTH 19.3 % (11.6-14.6)
[2021-01-01 16:42] LABS: CHLORIDE 103 mEq/L (98-107)
[2021-01-01 16:46] LABS: HEMOGLOBIN. 5.5 g/dL (12.0-16.0)
[2021-01-01 16:47] LABS: HEMATOCRIT. 16.9 % (36.0-48.0)
[2021-01-01 16:51] LABS: PROTHROMBIN TIME 10.9 sec (9.6-11.0)
[2021-01-01] MEDS ORDERED: PIPERACILLIN/TAZ 3.375G PREMIX 50 ML IV ONE (17:30)
[2021-01-01] MEDS ORDERED: VANCOMYCIN 1 G PREMIX 200 ML IV ONE (17:30)
[2021-01-01 21:00] VITALS: BP 184/78
[2021-01-01 21:30] VITALS: BP 184/78
[2021-01-01] MEDS ORDERED: HYDROCODONE/ACETAMINOPHEN 5/325MG TABLET PO PRN (21:30)
[2021-01-01] MEDS ORDERED: ACETAMINOPHEN 325MG TABLET PO PRN (21:30)
[2021-01-01] MEDS ORDERED: MORPHINE SULFATE 2 MG/ML CPJ (NOT FOR IM USE) IV PRN (21:30)
[2021-01-01] MEDS ORDERED: LORAZEPAM 2MG/ML CPJ IV PRN (21:30)
[2021-01-01] MEDS ORDERED: CEFTRIAXONE 1 G PREMIX 50 ML IV SCH (21:45)
[2021-01-01] MEDS ORDERED: AZITHROMYCIN 500 MG in DEXT 5% WATER 250 ML IV SCH ×2 (22:00→22:30)
[2021-01-01] MEDS: METOPROLOL TARTRATE 25MG TABLET PO SCH (23:00)
[2021-01-02] VITALS (11 sets, daily range): BP systolic 126–189; BP diastolic 46–93
[2021-01-02] MEDS: AZITHROMYCIN 500 MG in DEXT 5% WATER 250 ML IV SCH (00:35)
[2021-01-02] MEDS: DIPHENHYDRAMINE 50MG/ML VIAL IV PRN ×3 (00:36→17:59)
[2021-01-02] MEDS: CEFTRIAXONE 1,000 MG in DEXTROSE 5% WATER 50 ML IV SCH (00:36)
[2021-01-02] MEDS: ONDANSETRON HCL 4MG/2ML INJ IV PRN (05:19)
[2021-01-02] MEDS: FOLIC ACID 1MG TABLET PO SCH (08:19)
[2021-01-02] MEDS: METOPROLOL TARTRATE 25MG TABLET PO SCH ×2 (08:20→16:31)
[2021-01-02] MEDS ORDERED: LISINOPRIL 10MG TABLET PO SCH (09:00)
[2021-01-02] MEDS ORDERED: CLONIDINE 0.1MG TABLET PO PRN (12:00)
[2021-01-02 12:17] LABS: BASOPHILS % 0.4 % (0.0-2.0); EOSINOPHILS % 4.2 % (0.0-5.0); LYMPHOCYTES % 16.4 % (20.0-50.0); MEAN CORPUSCULAR HEMOGLOBIN 33.2 pg (28.0-32.0); MEAN CORPUSCULAR VOLUME 99.8 fL (81.0-99.0); MEAN PLATELET VOLUME 8.2 fl (7.4-10.4); MONOCYTES % 9.2 % (2.0-8.0); NEUTROPHILS % 69.8 % (40.0-76.0); PLATELET 179 x1000/uL (130-400); RED CELL DISTRIBUTION WIDTH 23.2 % (11.6-14.6)
[2021-01-02] MEDS: NIFEDIPINE XL 60MG TAB PO SCH (12:34)
[2021-01-02 12:47] LABS: HEMOGLOBIN. 6.3 g/dL (12.0-16.0)
[2021-01-02] MEDS: CLONIDINE 0.1MG TABLET PO SCH ×2 (14:00→21:00)
[2021-01-02 22:46] LABS: PLATELET ESTIMATE NORMAL
[2021-01-03] VITALS: BP 144/62
[2021-01-03] MEDS: CEFTRIAXONE 1,000 MG in DEXTROSE 5% WATER 50 ML IV SCH (00:27)
[2021-01-03] MEDS: DIPHENHYDRAMINE 50MG/ML VIAL IV PRN ×2 (00:28→09:50)
[2021-01-03] MEDS: AZITHROMYCIN 500 MG in DEXT 5% WATER 250 ML IV SCH (01:06)
[2021-01-03 01:44] LABS: HEMATOCRIT 24.5 % (36.0-48.0); HEMOGLOBIN 7.9 g/dL (12.0-16.0)
[2021-01-03 01:52] LABS: PROTHROMBIN TIME 10.9 sec (9.6-11.0)
[2021-01-03] MEDS: ONDANSETRON HCL 4MG/2ML INJ IV PRN (02:26)
[2021-01-03 04:00] VITALS: BP 118/59
[2021-01-03] MEDS: CLONIDINE 0.1MG TABLET PO SCH (06:40)
[2021-01-03] MEDS ORDERED: OMEPRAZOLE 20MG CAPSULE EXTENDED RELEASE PO SCH ×2 (06:45→07:40)
[2021-01-03 08:00] VITALS: BP 115/56
[2021-01-03] MEDS ORDERED: LISINOPRIL 20MG TABLET PO SCH (09:00)
[2021-01-03] MEDS: NIFEDIPINE XL 60MG TAB PO SCH (09:35)
[2021-01-03] MEDS: FOLIC ACID 1MG TABLET PO SCH (09:36)
[2021-01-03] MEDS: METOPROLOL TARTRATE 25MG TABLET PO SCH (09:36)
[2021-01-03 13:17] VITALS: BP 123/61
[2021-01-03] MEDS ORDERED: HYDR-4001 MT (13:35)
== END 2021-01-03 13:45 | disposition home or self-care (01) | DRG 193 ==
LOC: ER 15:50 → 7WST 17:23 → EDBEDREQ 17:28 → ENRESERV 19:31 → CANRESERV 19:31 → ENRESERV 21:15 → 5WST 01-02 17:14
PROVIDERS: ADMIT Internal Medicine Nephrology; ATTEND Internal Medicine Nephrology
PROC: 30233N1 Transfusion of Nonautologous Red Blood Cells into Peripheral Vein, Percutaneous Approach (ICD-10-PCS; principal; 2021-01-01)
DX: J18.9 Pneumonia, unspecified organism (principal); E43 Unspecified severe protein-calorie malnutrition; N18.6 End stage renal disease; I13.2 Hypertensive heart and chronic kidney disease with heart failure and with stage 5 chronic kidney disease, or end stage renal disease; Z68.1 Body mass index [BMI] 19.9 or less, adult; D64.9 Anemia, unspecified; D72.819 Decreased white blood cell count, unspecified; F17.210 Nicotine dependence, cigarettes, uncomplicated; I50.9 Heart failure, unspecified; K20.90 Esophagitis, unspecified without bleeding; J44.9 Chronic obstructive pulmonary disease, unspecified; Z20.822 Contact with and (suspected) exposure to COVID-19; K29.70 Gastritis, unspecified, without bleeding; K29.80 Duodenitis without bleeding; K74.60 Unspecified cirrhosis of liver; Z84.1 Family history of disorders of kidney and ureter; Z90.710 Acquired absence of both cervix and uterus; Z99.2 Dependence on renal dialysis; Z88.8 Allergy status to other drugs, medicaments and biological substances; Z87.898 Personal history of other specified conditions
CPT/HCPCS: 36415; 71045; 80048; 80053; 83605; 83880; 84484; 85014; 85018; 85025; 85049; 85384; 86850; 86900; 86920; 93005; 99285; C1893; J0456; J0696; J1200; J2405; J2543; J3370; J7040; J7060; P9016; U0003; U0005

== ENCOUNTER 2021-01-16 03:38 | Inpatient (IN) | payer MEDICARE, MEDICAID ==
[~2021-01-16] VITALS: Ht 165.1 cm; Wt 55.9 kg
[~2021-01-16 03:38] MED LIST changes: +HYDR-4001 MT
[2021-01-16] MEDS ORDERED: IPRATROPIUM BROMIDE (0.02%) 0.5MG/2.5ML NEB HHN STA (04:00)
[2021-01-16] MEDS ORDERED: METHYLPREDNISOLONE SOD SUCC 125 MG/2 ML VIAL IV STA (04:00)
[2021-01-16] MEDS ORDERED: ASPIRIN 81MG TABLET PO ONE (04:00)
[2021-01-16] MEDS ORDERED: ALBUTEROL (0.083%) 2.5MG/3ML NEB HHN STA (04:00)
[2021-01-16 04:27] LABS: CHLORIDE 99 mEq/L (98-107)
[2021-01-16] MEDS ORDERED: DIPHENHYDRAMINE 50MG/ML VIAL IV ONE ×2 (04:30→11:30)
[2021-01-16 04:41] LABS: BASOPHILS % 1.8 % (0.0-2.0); EOSINOPHILS % 3.9 % (0.0-5.0); LYMPHOCYTES % 12.2 % (20.0-50.0); MEAN CORPUSCULAR HEMOGLOBIN 33.8 pg (28.0-32.0); MEAN CORPUSCULAR VOLUME 102.3 fL (81.0-99.0); MEAN PLATELET VOLUME 8.2 fl (7.4-10.4); MONOCYTES % 8.3 % (2.0-8.0); NEUTROPHILS % 73.8 % (40.0-76.0); PLATELET 152 x1000/uL (130-400); RED BLOOD CELL COUNT 1.96 mill/uL (4.2-5.4); RED CELL DISTRIBUTION WIDTH 21.6 % (11.6-14.6)
[2021-01-16 05:12] LABS: HEMOGLOBIN. 6.6 g/dL (12.0-16.0)
[2021-01-16] MEDS ORDERED: SODIUM POLYSTYRENE SULFONATE 15 G/60 ML BOT PO ONE (05:15)
[2021-01-16] MEDS ORDERED: SODIUM BICARBONATE 8.4% 1 MEQ/ML 50ML SYR IV ONE (05:15)
[2021-01-16] MEDS ORDERED: ALBUTEROL (0.083%) 2.5MG/3ML NEB HHN ONE (05:15)
[2021-01-16] MEDS ORDERED: SODIUM POLYSTYRENE SULFONATE 15 G/60 ML BOT PO SCH (06:00)
[2021-01-16] MEDS ORDERED: VANCOMYCIN 1 G PREMIX 200 ML IV ONE (06:30)
[2021-01-16] MEDS ORDERED: PIPERACILLIN/TAZ 3.375G PREMIX 50 ML IV ONE (06:30)
[2021-01-16] MEDS ORDERED: ACETAMINOPHEN 325MG TABLET PO PRN (08:30)
[2021-01-16] MEDS ORDERED: ONDANSETRON HCL 4MG/2ML INJ IV PRN (08:30)
[2021-01-16 10:00] VITALS: BP 189/95
[2021-01-16] MEDS: CARVEDILOL 12.5MG TABLET PO SCH ×2 (10:09→21:33)
[2021-01-16] MEDS: OMEPRAZOLE 20MG CAPSULE EXTENDED RELEASE PO SCH (10:09)
[2021-01-16 11:45] VITALS: BP 178/79
[2021-01-16 12:00] VITALS: BP 178/79
[2021-01-16] MEDS: HYDRALAZINE HCL 100MG TABLET PO SCH ×2 (14:00→21:32)
[2021-01-16] MEDS ORDERED: HEPARIN SODIUM 1,000 UNIT/1ML VIAL IV SCH (15:30)
[2021-01-16 16:00] VITALS: BP 172/82
[2021-01-16 16:35] LABS: HEMATOCRIT 26.5 % (36.0-48.0); HEMOGLOBIN 9.1 g/dL (12.0-16.0)
[2021-01-16] MEDS: HYDROCODONE/ACETAMINOPHEN 5/325MG TABLET PO PRN (18:02)
[2021-01-16] MEDS: NIFEDIPINE XL 60MG TAB PO SCH (18:06)
[2021-01-16] MEDS ORDERED: *PATIENT'S OWN MEDICATION STORAGE XX SCH (18:45)
[2021-01-16 20:00] VITALS: BP 168/72
[2021-01-16] MEDS: DIPHENHYDRAMINE 25MG CAPSULE PO PRN (21:33)
[2021-01-17] VITALS: BP 139/89
[2021-01-17 04:00] VITALS: BP 119/48
[2021-01-17] MEDS: DIPHENHYDRAMINE 25MG CAPSULE PO PRN (04:32)
[2021-01-17] MEDS: OMEPRAZOLE 20MG CAPSULE EXTENDED RELEASE PO SCH (05:50)
[2021-01-17] MEDS: HYDRALAZINE HCL 100MG TABLET PO SCH ×3 (05:51→21:37)
[2021-01-17 08:00] VITALS: BP 115/57
[2021-01-17] MEDS: HYDROCODONE/ACETAMINOPHEN 5/325MG TABLET PO PRN (09:08)
[2021-01-17] MEDS: NIFEDIPINE XL 60MG TAB PO SCH ×2 (09:08→21:00)
[2021-01-17] MEDS: CARVEDILOL 12.5MG TABLET PO SCH ×2 (09:08→21:35)
[2021-01-17 10:34] LABS: BASOPHILS % 0.4 % (0.0-2.0); EOSINOPHILS % 0.1 % (0.0-5.0); HEMATOCRIT. 21.7 % (36.0-48.0); HEMOGLOBIN. 7.4 g/dL (12.0-16.0); LYMPHOCYTES % 10.8 % (20.0-50.0); MEAN CORPUSCULAR HEMOGLOBIN 34.5 pg (28.0-32.0); MEAN CORPUSCULAR VOLUME 101.2 fL (81.0-99.0); MEAN PLATELET VOLUME 8.6 fl (7.4-10.4); MONOCYTES % 10.9 % (2.0-8.0); NEUTROPHILS % 77.8 % (40.0-76.0); PLATELET 155 x1000/uL (130-400); RED BLOOD CELL COUNT 2.15 mill/uL (4.2-5.4); RED CELL DISTRIBUTION WIDTH 22.3 % (11.6-14.6)
[2021-01-17 12:00] VITALS: BP 116/65
[2021-01-17] MEDS: DIPHENHYDRAMINE 50MG/ML VIAL IV PRN ×2 (13:44→20:13)
[2021-01-17] MEDS ORDERED: IPRATROPIUM/ALBUTEROL 0.5-3(2.5)MG/3ML NEB HHN PRN (15:00)
[2021-01-17 16:00] VITALS: BP 108/68
[2021-01-17 20:00] VITALS: BP 116/57
[2021-01-18] VITALS (7 sets, daily range): BP systolic 108–178; BP diastolic 54–87
[2021-01-18] MEDS: DIPHENHYDRAMINE 50MG/ML VIAL IV PRN ×3 (01:50→20:13)
[2021-01-18] MEDS: HYDROCODONE/ACETAMINOPHEN 5/325MG TABLET PO PRN (05:28)
[2021-01-18] MEDS: OMEPRAZOLE 20MG CAPSULE EXTENDED RELEASE PO SCH (05:29)
[2021-01-18] MEDS: HYDRALAZINE HCL 100MG TABLET PO SCH ×3 (05:29→21:26)
[2021-01-18 05:52] LABS: BASOPHILS % 0.7 % (0.0-2.0); EOSINOPHILS % 2.4 % (0.0-5.0); HEMATOCRIT. 21.3 % (36.0-48.0); HEMOGLOBIN. 7.1 g/dL (12.0-16.0); LYMPHOCYTES % 14.7 % (20.0-50.0); MEAN CORPUSCULAR HEMOGLOBIN 34.1 pg (28.0-32.0); MEAN CORPUSCULAR VOLUME 103.1 fL (81.0-99.0); MEAN PLATELET VOLUME 8.2 fl (7.4-10.4); MONOCYTES % 12.5 % (2.0-8.0); NEUTROPHILS % 69.7 % (40.0-76.0); PLATELET 137 x1000/uL (130-400); RED BLOOD CELL COUNT 2.07 mill/uL (4.2-5.4); RED CELL DISTRIBUTION WIDTH 22.6 % (11.6-14.6)
[2021-01-18] MEDS ORDERED: VANCOMYCIN 500 MG PREMIX 100 ML IV SCH (06:30)
[2021-01-18 06:45] LABS: FOLIC ACID (FOLATE) SERUM 7.3 ng/mL (>5.38)
[2021-01-18] MEDS: CARVEDILOL 12.5MG TABLET PO SCH ×2 (09:00→21:27)
[2021-01-18] MEDS: NIFEDIPINE XL 60MG TAB PO SCH ×2 (09:00→21:27)
[2021-01-18] MEDS ORDERED: HYDROCODONE/ACETAMINOPHEN 10/325MG TABLET PO PRN (10:30)
[2021-01-18 12:57] LABS: INR 1.1; PARTIAL THROMBOPLASTIN TIME 29.6 sec (23.4-31.0); PROTHROMBIN TIME 11.4 sec (9.6-11.0)
[2021-01-18 13:22] LABS: HEPATITIS B SURFACE ANTIGEN NEGATIVE
[2021-01-18 13:51] LABS: HEPATITIS A AB IGM NEGATIVE (NEGATIVE)
[2021-01-18] MEDS ORDERED: DIPHENHYDRAMINE 25MG CAPSULE PO PRN (21:45)
[2021-01-19 00:20] VITALS: BP 163/79
[2021-01-19] MEDS: HYDROCODONE/ACETAMINOPHEN 5/325MG TABLET PO PRN (02:16)
[2021-01-19 03:18] LABS: BASOPHILS % 1.3 % (0.0-2.0); EOSINOPHILS % 8.8 % (0.0-5.0); HEMATOCRIT. 25.8 % (36.0-48.0); HEMOGLOBIN. 8.6 g/dL (12.0-16.0); LYMPHOCYTES % 14.6 % (20.0-50.0); MEAN CORPUSCULAR HEMOGLOBIN 32.5 pg (28.0-32.0); MEAN CORPUSCULAR VOLUME 97.7 fL (81.0-99.0); MEAN PLATELET VOLUME 7.8 fl (7.4-10.4); MONOCYTES % 11.2 % (2.0-8.0); NEUTROPHILS % 64.1 % (40.0-76.0); PLATELET 131 x1000/uL (130-400); RED BLOOD CELL COUNT 2.64 mill/uL (4.2-5.4); RED CELL DISTRIBUTION WIDTH 24.6 % (11.6-14.6)
[2021-01-19 03:23] LABS: PROTHROMBIN TIME 10.9 sec (9.6-11.0)
[2021-01-19 03:50] LABS: PLATELET ESTIMATE NORMAL
[2021-01-19] MEDS: OMEPRAZOLE 20MG CAPSULE EXTENDED RELEASE PO SCH (05:59)
[2021-01-19] MEDS: HYDRALAZINE HCL 100MG TABLET PO SCH (05:59)
[2021-01-19] MEDS: DIPHENHYDRAMINE 50MG/ML VIAL IV PRN (07:03)
[2021-01-19 08:43] VITALS: BP 135/53
[2021-01-19] MEDS: CARVEDILOL 12.5MG TABLET PO SCH (08:46)
[2021-01-19] MEDS: NIFEDIPINE XL 60MG TAB PO SCH (08:46)
[2021-01-19 08:50] VITALS: BP 169/64
[2021-01-19 09:00] VITALS: BP 161/64
[2021-01-19] MEDS ORDERED: LIDOCAINE HCL 1% 20ML VIAL (Pyxis) INJ ONE (09:00)
[2021-01-19] MEDS ORDERED: IOHEXOL-300 100 ML BOTTLE ONE (09:00)
[2021-01-19 09:02] VITALS: BP 169/64
[2021-01-19] MEDS ORDERED: POTASSIUM CHLORIDE 20MEQ TABLET SR PO NR ×2 (10:15)
[2021-01-19 11:22] VITALS: BP 119/60
[2021-01-19] MEDS ORDERED: HYDR-4001 MT (11:59)
== END 2021-01-19 11:55 | disposition home or self-care (01) | DRG 291 ==
LOC: ER 03:38 → ENRESERV 07:22 → 8WST 09:52
PROVIDERS: ADMIT Internal Medicine; ATTEND Internal Medicine
PROC: 30233N1 Transfusion of Nonautologous Red Blood Cells into Peripheral Vein, Percutaneous Approach (ICD-10-PCS; principal; 2021-01-16)
PROC: 5A1D70Z Performance of Urinary Filtration, Intermittent, Less than 6 Hours Per Day (ICD-10-PCS; 2021-01-16)
PROC: 5A1D70Z Performance of Urinary Filtration, Intermittent, Less than 6 Hours Per Day (ICD-10-PCS; 2021-01-18)
PROC: 5A1D70Z Performance of Urinary Filtration, Intermittent, Less than 6 Hours Per Day (ICD-10-PCS; 2021-01-19)
DX: I13.2 Hypertensive heart and chronic kidney disease with heart failure and with stage 5 chronic kidney disease, or end stage renal disease (principal); N18.6 End stage renal disease; E43 Unspecified severe protein-calorie malnutrition; I50.33 Acute on chronic diastolic (congestive) heart failure; J96.01 Acute respiratory failure with hypoxia; E87.1 Hypo-osmolality and hyponatremia; J44.1 Chronic obstructive pulmonary disease with (acute) exacerbation; K20.90 Esophagitis, unspecified without bleeding; K29.70 Gastritis, unspecified, without bleeding; K29.80 Duodenitis without bleeding; I25.10 Atherosclerotic heart disease of native coronary artery without angina pectoris; K74.60 Unspecified cirrhosis of liver; F17.210 Nicotine dependence, cigarettes, uncomplicated; E87.5 Hyperkalemia; E87.6 Hypokalemia; M48.061 Spinal stenosis, lumbar region without neurogenic claudication; D53.9 Nutritional anemia, unspecified; Z20.822 Contact with and (suspected) exposure to COVID-19; M51.36 Other intervertebral disc degeneration, lumbar region; M19.90 Unspecified osteoarthritis, unspecified site; Z71.6 Tobacco abuse counseling; Z99.2 Dependence on renal dialysis; Z88.1 Allergy status to other antibiotic agents; Z79.1 Long term (current) use of non-steroidal anti-inflammatories (NSAID); Z79.899 Other long term (current) drug therapy; Z68.20 Body mass index [BMI] 20.0-20.9, adult
CPT/HCPCS: 36415; 71045; 72141; 72148; 80048; 80053; 80074; 80202; 82270; 82607; 82746; 83605; 83880; 84484; 85014; 85018; 85025; 85384; 86705; 86709; 86803; 86850; 86900; 86920; 87340; 87426; 93005; 93971; 94644; 97162; 97530; 99285; C1893; J1200; J1644; J2543; J2930; J3370; J3490; P9016; Q0163; Q9967

== ENCOUNTER 2021-01-27 22:11 | Emergency (ER) | payer MEDICARE, OTHER ==
[~2021-01-27] VITALS: Ht 165.1 cm; Wt 48.0 kg
[2021-01-27] MEDS ORDERED: HYDROCODONE/ACETAMINOPHEN 10/325MG TABLET PO ONE (22:45)
[2021-01-27 22:54] VITALS: BP 183/79
[2021-01-27 23:02] LABS: BASOPHILS % 1.3 % (0.0-2.0); EOSINOPHILS % 7.3 % (0.0-5.0); HEMATOCRIT. 21.3 % (36.0-48.0); HEMOGLOBIN. 7.4 g/dL (12.0-16.0); LYMPHOCYTES % 15.1 % (20.0-50.0); MEAN CORPUSCULAR HEMOGLOBIN 34.4 pg (28.0-32.0); MEAN CORPUSCULAR VOLUME 99.8 fL (81.0-99.0); MEAN PLATELET VOLUME 7.9 fl (7.4-10.4); NEUTROPHILS % 66.3 % (40.0-76.0); PLATELET 178 x1000/uL (130-400); RED BLOOD CELL COUNT 2.14 mill/uL (4.2-5.4); RED CELL DISTRIBUTION WIDTH 20.8 % (11.6-14.6)
[2021-01-27 23:09] LABS: CHLORIDE 100 mEq/L (98-107)
[2021-01-27] MEDS ORDERED: DIPHENHYDRAMINE 25MG CAPSULE PO NR (23:15)
[2021-02-05] MEDS ORDERED: HYDR-4009 MT (11:13)
== END 2021-01-27 23:31 | disposition home or self-care (01) ==
LOC: ER 22:11
DX: D64.9 Anemia, unspecified (principal); G89.29 Other chronic pain; M54.9 Dorsalgia, unspecified; I13.2 Hypertensive heart and chronic kidney disease with heart failure and with stage 5 chronic kidney disease, or end stage renal disease; N18.6 End stage renal disease; I50.9 Heart failure, unspecified; Z99.2 Dependence on renal dialysis; J44.9 Chronic obstructive pulmonary disease, unspecified; Z79.899 Other long term (current) drug therapy
CPT/HCPCS: 36415; 80053; 85025; 86850; 86900; 86901; 99283; Q0163

== ENCOUNTER 2021-04-04 02:59 | Inpatient (IN) | payer MEDICARE, MEDICAID ==
[2021-04-04] VITALS (7 sets, daily range): BP systolic 139–162; BP diastolic 84–98
[~2021-04-04] VITALS: Ht 165.1 cm; Wt 48.6 kg
[~2021-04-04 02:59] MED LIST changes: +HYDR-4009 MT
[2021-04-04] MEDS ORDERED: ONDANSETRON HCL 4MG/2ML INJ IV STA (03:34)
[2021-04-04] MEDS ORDERED: MORPHINE SULFATE 4 MG/ML CPJ (NOT FOR IM USE) IV STA (03:34)
[2021-04-04] MEDS ORDERED: DIPHENHYDRAMINE 50MG/ML VIAL IV ONE (04:30)
[2021-04-04 05:22] LABS: BASOPHILS % 2.1 % (0.0-2.0); EOSINOPHILS % 8.6 % (0.0-5.0); HEMATOCRIT. 37.9 % (36.0-48.0); HEMOGLOBIN. 12.1 g/dL (12.0-16.0); LYMPHOCYTES % 28.1 % (20.0-50.0); MEAN CORPUSCULAR HEMOGLOBIN 28.5 pg (28.0-32.0); MEAN CORPUSCULAR VOLUME 89.5 fL (81.0-99.0); MEAN PLATELET VOLUME 8.5 fl (7.4-10.4); NEUTROPHILS % 50.2 % (40.0-76.0); PLATELET 132 x1000/uL (130-400); RED BLOOD CELL COUNT 4.23 mill/uL (4.2-5.4); RED CELL DISTRIBUTION WIDTH 25.2 % (11.6-14.6)
[2021-04-04 05:36] LABS: CHLORIDE 98 mEq/L (98-107)
[2021-04-04 09:11] LABS: PLATELET ESTIMATE NORMAL
[2021-04-04] MEDS ORDERED: MORPHINE SULFATE 2 MG/ML CPJ (NOT FOR IM USE) IV SCH (10:00)
[2021-04-04] MEDS ORDERED: ONDANSETRON HCL 4MG/2ML INJ IV PRN (11:45)
[2021-04-04] MEDS ORDERED: ACETAMINOPHEN 325MG TABLET PO PRN (11:45)
[2021-04-04] MEDS: AMLODIPINE 10MG TABLET PO SCH (11:45)
[2021-04-04] MEDS ORDERED: NALOXONE HCL 0.4MG/ML VIAL IV PRN (12:30)
[2021-04-04] MEDS: DIPHENHYDRAMINE 50MG/ML VIAL IV PRN ×2 (12:34→20:37)
[2021-04-04] MEDS ORDERED: IPRATROPIUM/ALBUTEROL 0.5-3(2.5)MG/3ML NEB HHN PRN (13:00)
[2021-04-04 13:05] LABS: HEPATITIS B SURFACE ANTIGEN NEGATIVE
[2021-04-04] MEDS: HYDRALAZINE HCL 50MG TABLET PO SCH (20:38)
[2021-04-04] MEDS: HYDROCODONE/ACETAMINOPHEN 5/325MG TABLET PO PRN (20:40)
[2021-04-04 23:05] LABS: INR 1.1; PARTIAL THROMBOPLASTIN TIME 35.6 sec (23.4-31.0); PROTHROMBIN TIME 12.1 sec (9.6-11.0)
[2021-04-04] MEDS ORDERED: HEPARIN 5000 UNITS/ML VIAL IV SCH (23:21)
[2021-04-04] MEDS ORDERED: HEPARIN 25,000 UNITS PREMIX 250 ML IV PRN (23:45)
[2021-04-05] VITALS (16 sets, daily range): BP systolic 113–173; BP diastolic 50–84
[2021-04-05] MEDS ORDERED: HEPARIN 5000 UNITS/ML VIAL IV PRN ×2 (05:00)
[2021-04-05] MEDS: DIPHENHYDRAMINE 50MG/ML VIAL IV PRN ×2 (05:26→18:21)
[2021-04-05] MEDS ORDERED: ENOXAPARIN 30MG/0.3ML SYR SUBCUT SCH (09:00)
[2021-04-05] MEDS: AMLODIPINE 10MG TABLET PO SCH (09:05)
[2021-04-05] MEDS: HYDRALAZINE HCL 50MG TABLET PO SCH ×2 (09:06→22:45)
[2021-04-05 09:13] LABS: HEMATOCRIT. 37.2 % (36.0-48.0); HEMOGLOBIN. 11.6 g/dL (12.0-16.0); MEAN CORPUSCULAR HEMOGLOBIN 28.5 pg (28.0-32.0); MEAN CORPUSCULAR VOLUME 91.8 fL (81.0-99.0); RED BLOOD CELL COUNT 4.05 mill/uL (4.2-5.4); RED CELL DISTRIBUTION WIDTH 24.5 % (11.6-14.6)
[2021-04-05] MEDS: ENOXAPARIN 60MG/0.6ML SYR SUBCUT SCH (12:59)
[2021-04-05 13:30] LABS: PLATELET 70 x1000/uL (130-400); PLATELET ESTIMATE DECREASED
[2021-04-05] MEDS ORDERED: MIDAZOLAM HCL 2 MG/2 ML VIAL ONE (14:17)
[2021-04-05] MEDS ORDERED: FENTANYL CITRATE/PF 50MCG/ML 2ML VIAL ONE (14:17)
[2021-04-05] MEDS ORDERED: LIDOCAINE HCL 1% 20ML VIAL (Pyxis) INJ ONE (14:18)
[2021-04-05] MEDS ORDERED: IODIXANOL 320MG/ML 100 ML BOTTLE IV ONE (14:18)
[2021-04-05] MEDS ORDERED: ATROPINE SULFATE 1MG/10ML SYR IV PRN (15:15)
[2021-04-05] MEDS ORDERED: ACETAMINOPHEN 325MG TABLET PO PRN (15:15)
[2021-04-05] MEDS: MORPHINE SULFATE 2 MG/ML CPJ (NOT FOR IM USE) IV PRN ×2 (16:59→22:53)
[2021-04-06] VITALS (15 sets, daily range): BP systolic 132–169; BP diastolic 54–83
[2021-04-06] MEDS: DIPHENHYDRAMINE 50MG/ML VIAL IV PRN ×3 (02:48→21:37)
[2021-04-06 06:35] LABS: BASOPHILS % 1.2 % (0.0-2.0); EOSINOPHILS % 5.6 % (0.0-5.0); HEMATOCRIT. 37.9 % (36.0-48.0); HEMOGLOBIN. 11.6 g/dL (12.0-16.0); LYMPHOCYTES % 12.2 % (20.0-50.0); MEAN CORPUSCULAR HEMOGLOBIN 28.6 pg (28.0-32.0); MEAN CORPUSCULAR VOLUME 93.8 fL (81.0-99.0); MEAN PLATELET VOLUME 8.5 fl (7.4-10.4); MONOCYTES % 11.2 % (2.0-8.0); NEUTROPHILS % 69.8 % (40.0-76.0); PLATELET 84 x1000/uL (130-400); RED BLOOD CELL COUNT 4.04 mill/uL (4.2-5.4)
[2021-04-06] MEDS: HYDRALAZINE HCL 50MG TABLET PO SCH ×2 (08:33→21:37)
[2021-04-06] MEDS: AMLODIPINE 10MG TABLET PO SCH (08:34)
[2021-04-06] MEDS: ENOXAPARIN 60MG/0.6ML SYR SUBCUT SCH (08:34)
[2021-04-06] MEDS: HYDROCODONE/ACETAMINOPHEN 5/325MG TABLET PO PRN ×2 (09:04→18:46)
[2021-04-06] MEDS ORDERED: CLONIDINE 0.1MG TABLET PO PRN (09:15)
[2021-04-06] MEDS: CARVEDILOL 6.25 MG TABLET PO SCH ×2 (09:21→21:38)
[2021-04-07] VITALS (14 sets, daily range): BP systolic 134–175; BP diastolic 60–86
[2021-04-07] MEDS: HYDROCODONE/ACETAMINOPHEN 5/325MG TABLET PO PRN (04:39)
[2021-04-07] MEDS: DIPHENHYDRAMINE 50MG/ML VIAL IV PRN (06:27)
[2021-04-07] MEDS: AMLODIPINE 10MG TABLET PO SCH (09:09)
[2021-04-07] MEDS: HYDRALAZINE HCL 50MG TABLET PO SCH ×2 (09:09→21:26)
[2021-04-07] MEDS: ENOXAPARIN 60MG/0.6ML SYR SUBCUT SCH (09:10)
[2021-04-07] MEDS ORDERED: DIPHENHYDRAMINE 50MG CAPSULE PO PRN (10:45)
[2021-04-07 10:48] LABS: HEMATOCRIT. 36.9 % (36.0-48.0); HEMOGLOBIN. 11.3 g/dL (12.0-16.0); MEAN CORPUSCULAR HEMOGLOBIN 28.7 pg (28.0-32.0); MEAN CORPUSCULAR VOLUME 93.7 fL (81.0-99.0); MEAN PLATELET VOLUME 8.2 fl (7.4-10.4); PLATELET 93 x1000/uL (130-400); RED BLOOD CELL COUNT 3.94 mill/uL (4.2-5.4); RED CELL DISTRIBUTION WIDTH 24.3 % (11.6-14.6)
[2021-04-07 14:06] LABS: PLATELET ESTIMATE DECREASED
[2021-04-07] MEDS ORDERED: CARVEDILOL 12.5MG TABLET PO SCH (21:00)
== END 2021-04-07 22:30 | disposition home or self-care (01) | DRG 280 ==
LOC: ER 02:59 → 3WST 06:07 → ENRESERV 09:02 → 3WST 04-05 15:43
PROVIDERS: ADMIT Internal Medicine; ATTEND Internal Medicine
PROC: 5A1D70Z Performance of Urinary Filtration, Intermittent, Less than 6 Hours Per Day (ICD-10-PCS; 2021-04-04)
PROC: 4A023N7 Measurement of Cardiac Sampling and Pressure, Left Heart, Percutaneous Approach (ICD-10-PCS; principal; 2021-04-05)
PROC: 5A1D70Z Performance of Urinary Filtration, Intermittent, Less than 6 Hours Per Day (ICD-10-PCS; 2021-04-05)
PROC: 5A1D70Z Performance of Urinary Filtration, Intermittent, Less than 6 Hours Per Day (ICD-10-PCS; 2021-04-07)
DX: I21.4 Non-ST elevation (NSTEMI) myocardial infarction (principal); J96.00 Acute respiratory failure, unspecified whether with hypoxia or hypercapnia; N18.6 End stage renal disease; I50.23 Acute on chronic systolic (congestive) heart failure; E44.1 Mild protein-calorie malnutrition; E87.1 Hypo-osmolality and hyponatremia; J98.11 Atelectasis; I13.2 Hypertensive heart and chronic kidney disease with heart failure and with stage 5 chronic kidney disease, or end stage renal disease; Z68.1 Body mass index [BMI] 19.9 or less, adult; I42.9 Cardiomyopathy, unspecified; I16.0 Hypertensive urgency; E78.5 Hyperlipidemia, unspecified; D72.819 Decreased white blood cell count, unspecified; F17.210 Nicotine dependence, cigarettes, uncomplicated; E87.5 Hyperkalemia; J44.9 Chronic obstructive pulmonary disease, unspecified; K74.60 Unspecified cirrhosis of liver; Z20.822 Contact with and (suspected) exposure to COVID-19; D64.9 Anemia, unspecified; M48.00 Spinal stenosis, site unspecified; I27.20 Pulmonary hypertension, unspecified; Z84.1 Family history of disorders of kidney and ureter; Z87.11 Personal history of peptic ulcer disease; Z99.2 Dependence on renal dialysis; Z88.1 Allergy status to other antibiotic agents; Z79.891 Long term (current) use of opiate analgesic; Z79.899 Other long term (current) drug therapy; Z71.6 Tobacco abuse counseling; I25.2 Old myocardial infarction
CPT/HCPCS: 36415; 71045; 80048; 80053; 80061; 83735; 83880; 84145; 84484; 85025; 86705; 86709; 86803; 87340; 87426; 93005; 93306; 93458; 99285; C1760; C1769; C1887; C1893; J1200; J1644; J1650; J2250; J2270; J2405; J3010; J3490; Q0163; Q9967

== ENCOUNTER 2021-09-10 22:15 | Inpatient (IN) | payer MEDICARE, MEDICAID ==
[~2021-09-10] VITALS: Ht 165.1 cm; Wt 67.6 kg
[2021-09-10] MEDS ORDERED: ALBUTEROL (0.083%) 2.5MG/3ML NEB HHN STA (22:38)
[2021-09-10] MEDS ORDERED: METHYLPREDNISOLONE SOD SUCC 125 MG/2 ML VIAL IV STA (22:38)
[2021-09-10 23:57] LABS: HEMATOCRIT. 42.4 % (36.0-48.0); MEAN CORPUSCULAR HEMOGLOBIN 30.5 pg (28.0-32.0); MEAN PLATELET VOLUME 8.3 fl (7.4-10.4); PLATELET 139 x1000/uL (130-400); RED BLOOD CELL COUNT 4.61 mill/uL (4.2-5.4); RED CELL DISTRIBUTION WIDTH 17.7 % (11.6-14.6)
[2021-09-10 23:59] LABS: CHLORIDE 98 mEq/L (98-107)
[2021-09-11] MEDS ORDERED: ACETAMINOPHEN 325MG TABLET PO ONE
[2021-09-11 04:56] LABS: PLATELET ESTIMATE NORMAL
[2021-09-11 10:00] VITALS: BP 158/99
[2021-09-11 10:30] VITALS: BP 158/99
[2021-09-11] MEDS ORDERED: ACETAMINOPHEN 325MG TABLET PO PRN (10:30)
[2021-09-11] MEDS ORDERED: DIPHENHYDRAMINE 50MG/ML VIAL IV PRN (10:30)
[2021-09-11] MEDS ORDERED: IPRATROPIUM/ALBUTEROL 0.5-3(2.5)MG/3ML NEB HHN PRN (10:30)
[2021-09-11] MEDS ORDERED: GUAIFENESIN 200MG/10ML SUGAR FREE UDC PO PRN (10:30)
[2021-09-11] MEDS ORDERED: CLONIDINE 0.1MG TABLET PO PRN (10:30)
[2021-09-11] MEDS ORDERED: MAGNESIUM/ALUMINUM HYDROXIDE/SIMETHICONE 30ML UDC PO PRN (10:30)
[2021-09-11 12:00] VITALS: BP 151/70
[2021-09-11] MEDS ORDERED: INFLUENZA VACCINE 05/PF 0.5 ML SYRINGE IM ONE (14:00)
[2021-09-11] MEDS: SODIUM CHLORIDE 0.9% INJ 3ML FLUSH IVF SCH ×2 (14:00→21:17)
[2021-09-11] MEDS: DIPHENHYDRAMINE 50MG/ML VIAL IV PRN ×2 (14:57→21:16)
[2021-09-11] MEDS ORDERED: PNEUMOCOCCAL 23-VAL P-SAC VAC 0.5 ML IM ONE (15:00)
[2021-09-11 16:00] VITALS: BP 125/66
[2021-09-11] MEDS: IPRATROPIUM/ALBUTEROL 0.5-3(2.5)MG/3ML NEB HHN SCH ×2 (17:47→23:20)
[2021-09-11] MEDS: ACETAMINOPHEN 325MG TABLET PO PRN (18:51)
[2021-09-11 20:00] VITALS: BP 149/87
[2021-09-11] MEDS ORDERED: ZOLPIDEM TARTRATE 5MG TABLET PO PRN (21:00)
[2021-09-12] VITALS: BP 112/60
[2021-09-12 04:00] VITALS: BP_SYST 126; BP_SYST 139; BP_DIAS 68; BP_DIAS 89
[2021-09-12] MEDS: SODIUM CHLORIDE 0.9% INJ 3ML FLUSH IVF SCH ×2 (05:45→13:36)
[2021-09-12] MEDS: DIPHENHYDRAMINE 50MG/ML VIAL IV PRN ×3 (05:46→20:01)
[2021-09-12] MEDS: ACETAMINOPHEN 325MG TABLET PO PRN (05:46)
[2021-09-12 08:00] VITALS: BP 143/78
[2021-09-12] MEDS: IPRATROPIUM/ALBUTEROL 0.5-3(2.5)MG/3ML NEB HHN SCH ×3 (09:30→22:21)
[2021-09-12] MEDS: NICOTINE 14MG PATCH TD SCH (10:05)
[2021-09-12 11:34] LABS: HEPATITIS B SURFACE ANTIGEN NEGATIVE
[2021-09-12 12:00] VITALS: BP 147/80
[2021-09-12] MEDS ORDERED: BENZONATATE 100MG CAPSULE PO PRN (14:45)
[2021-09-12] MEDS ORDERED: CEFTRIAXONE 1 G PREMIX 50 ML IV SCH (14:45)
[2021-09-12] MEDS ORDERED: NALOXONE HCL 0.4MG/ML VIAL IV PRN (15:00)
[2021-09-12 16:00] VITALS: BP 138/78
[2021-09-12] MEDS: HYDROCODONE/ACETAMINOPHEN 10/325MG TABLET PO PRN (18:26)
[2021-09-12] MEDS: CEFTRIAXONE 1,000 MG in DEXTROSE 5% WATER 50 ML IV SCH (19:21)
[2021-09-12 20:00] VITALS: BP 157/87
[2021-09-12] MEDS: GUAIFENESIN 600MG ER TABLET PO SCH (20:01)
[2021-09-13] VITALS: BP 129/83
[2021-09-13 04:00] VITALS: BP 147/83
[2021-09-13] MEDS: IPRATROPIUM/ALBUTEROL 0.5-3(2.5)MG/3ML NEB HHN SCH ×4 (04:00→20:00)
[2021-09-13] MEDS: DIPHENHYDRAMINE 50MG/ML VIAL IV PRN ×3 (04:22→22:53)
[2021-09-13] MEDS: SODIUM CHLORIDE 0.9% INJ 3ML FLUSH IVF SCH ×3 (05:13→21:49)
[2021-09-13 08:00] VITALS: BP 126/71
[2021-09-13] MEDS: HYDROCODONE/ACETAMINOPHEN 10/325MG TABLET PO PRN ×2 (08:32→22:53)
[2021-09-13] MEDS: ONDANSETRON HCL 4MG/2ML INJ IV PRN (08:32)
[2021-09-13] MEDS: GUAIFENESIN 600MG ER TABLET PO SCH ×2 (09:00→21:48)
[2021-09-13] MEDS: NICOTINE 14MG PATCH TD SCH (09:00)
[2021-09-13] MEDS: CARVEDILOL 6.25 MG TABLET PO SCH ×2 (09:15→21:48)
[2021-09-13 12:00] VITALS: BP 123/68
[2021-09-13 12:39] LABS: HEMOGLOBIN. 11.8 g/dL (12.0-16.0); MEAN CORPUSCULAR VOLUME 94.9 fL (81.0-99.0); MEAN PLATELET VOLUME 8.3 fl (7.4-10.4); PLATELET 126 x1000/uL (130-400); RED BLOOD CELL COUNT 3.68 mill/uL (4.2-5.4)
[2021-09-13] MEDS: NITROGLYCERIN OINT 1GM/INCH UDPKT TD SCH ×2 (14:08→21:48)
[2021-09-13 16:00] VITALS: BP 122/70
[2021-09-13] MEDS: CEFTRIAXONE 1,000 MG in DEXTROSE 5% WATER 50 ML IV SCH (17:26)
[2021-09-13 20:00] VITALS: BP 139/69
[2021-09-13 20:41] LABS: PLATELET ESTIMATE SLIGHTLY DECREASED
[2021-09-14] VITALS: BP 129/76
[2021-09-14 04:00] VITALS: BP 111/57
[2021-09-14] MEDS: SODIUM CHLORIDE 0.9% INJ 3ML FLUSH IVF SCH ×3 (06:06→20:59)
[2021-09-14] MEDS: NITROGLYCERIN OINT 1GM/INCH UDPKT TD SCH ×4 (06:06→20:59)
[2021-09-14 08:00] VITALS: BP 147/66
[2021-09-14] MEDS: IPRATROPIUM/ALBUTEROL 0.5-3(2.5)MG/3ML NEB HHN SCH ×4 (09:41→21:21)
[2021-09-14] MEDS: LOSARTAN POTASSIUM 25 MG TABLET PO SCH (10:07)
[2021-09-14] MEDS: CARVEDILOL 6.25 MG TABLET PO SCH ×2 (10:08→20:59)
[2021-09-14] MEDS: ONDANSETRON HCL 4MG/2ML INJ IV PRN (10:08)
[2021-09-14] MEDS: DIPHENHYDRAMINE 50MG/ML VIAL IV PRN ×3 (10:08→23:42)
[2021-09-14] MEDS: GUAIFENESIN 600MG ER TABLET PO SCH ×2 (10:08→20:59)
[2021-09-14] MEDS: NICOTINE 14MG PATCH TD SCH (10:09)
[2021-09-14] MEDS: ACETAMINOPHEN 325MG TABLET PO PRN (10:10)
[2021-09-14 12:00] VITALS: BP 128/61
[2021-09-14 16:00] VITALS: BP 151/64
[2021-09-14] MEDS ORDERED: ONDANSETRON HCL 4MG/2ML INJ IV PRN (17:00)
[2021-09-14] MEDS: HYDROCODONE/ACETAMINOPHEN 10/325MG TABLET PO PRN (17:21)
[2021-09-14] MEDS: CEFTRIAXONE 1,000 MG in DEXTROSE 5% WATER 50 ML IV SCH (17:23)
[2021-09-14 20:00] VITALS: BP 138/85
[2021-09-15] VITALS (7 sets, daily range): BP systolic 112–151; BP diastolic 50–86
[2021-09-15] MEDS: IPRATROPIUM/ALBUTEROL 0.5-3(2.5)MG/3ML NEB HHN SCH ×2 (02:26→13:48)
[2021-09-15] MEDS: DIPHENHYDRAMINE 50MG/ML VIAL IV PRN ×3 (05:40→14:33)
[2021-09-15] MEDS: NITROGLYCERIN OINT 1GM/INCH UDPKT TD SCH ×2 (05:40→14:00)
[2021-09-15] MEDS: SODIUM CHLORIDE 0.9% INJ 3ML FLUSH IVF SCH ×2 (05:40→14:00)
[2021-09-15] MEDS: LOSARTAN POTASSIUM 25 MG TABLET PO SCH (08:53)
[2021-09-15] MEDS: CARVEDILOL 6.25 MG TABLET PO SCH (08:53)
[2021-09-15] MEDS: GUAIFENESIN 600MG ER TABLET PO SCH (08:53)
[2021-09-15] MEDS: NICOTINE 14MG PATCH TD SCH (08:54)
[2021-09-15] MEDS ORDERED: ZOLP5TAB2 PO (11:38)
[2021-09-15] MEDS ORDERED: GUAI600T44 PO (11:38)
[2021-09-15] MEDS ORDERED: DEXTL PO (11:38)
[2021-09-15] MEDS ORDERED: LEVO250T58 MT (11:38)
[2021-09-15] MEDS: HYDROCODONE/ACETAMINOPHEN 10/325MG TABLET PO PRN ×2 (14:27→14:35)
[2021-09-15] MEDS: CEFTRIAXONE 1,000 MG in DEXTROSE 5% WATER 50 ML IV SCH (18:25)
== END 2021-09-15 21:15 | disposition home or self-care (01) | DRG 193 ==
LOC: ER 22:15 → EDBEDREQTM 09-11 03:17 → EDBEDREQDT 09-11 03:17 → EDBEDREQ 09-11 03:17 → MICUSO 09-11 05:55 → 8WST 09-11 07:25
PROVIDERS: ADMIT Internal Medicine Nephrology; ATTEND Internal Medicine Nephrology
PROC: 5A1D70Z Performance of Urinary Filtration, Intermittent, Less than 6 Hours Per Day (ICD-10-PCS; principal; 2021-09-13)
PROC: 5A1D70Z Performance of Urinary Filtration, Intermittent, Less than 6 Hours Per Day (ICD-10-PCS; 2021-09-15)
DX: J18.9 Pneumonia, unspecified organism (principal); J96.01 Acute respiratory failure with hypoxia; N18.6 End stage renal disease; I50.43 Acute on chronic combined systolic (congestive) and diastolic (congestive) heart failure; I13.2 Hypertensive heart and chronic kidney disease with heart failure and with stage 5 chronic kidney disease, or end stage renal disease; J44.1 Chronic obstructive pulmonary disease with (acute) exacerbation; E44.1 Mild protein-calorie malnutrition; E87.1 Hypo-osmolality and hyponatremia; I42.9 Cardiomyopathy, unspecified; Z20.822 Contact with and (suspected) exposure to COVID-19; F17.200 Nicotine dependence, unspecified, uncomplicated; K74.60 Unspecified cirrhosis of liver; G89.29 Other chronic pain; M54.9 Dorsalgia, unspecified; M48.00 Spinal stenosis, site unspecified; Z90.711 Acquired absence of uterus with remaining cervical stump; Z99.2 Dependence on renal dialysis; Z88.8 Allergy status to other drugs, medicaments and biological substances; Z79.899 Other long term (current) drug therapy; Z79.891 Long term (current) use of opiate analgesic; Z88.1 Allergy status to other antibiotic agents
CPT/HCPCS: 36415; 71045; 80048; 80053; 83880; 84145; 84484; 85025; 86705; 86709; 86803; 87340; 87426; 90686; 90732; 93005; 93923; 93970; 94640; 99291; C1893; J0696; J1200; J2405; J2930; J7040; J7060

== ENCOUNTER 2021-12-23 20:12 | Inpatient (IN) | payer MEDICARE, MEDICAID ==
[~2021-12-23] VITALS: Ht 162.6 cm; Wt 47.6 kg
[~2021-12-23 20:12] MED LIST changes: +ALBU18HF2 IH; +AMLO2.5T2 PO; -CLON0.1T PO; +DEXTL PO; +GUAI600T44 PO; +ZOLP5TAB2 PO
[2021-12-23] MEDS ORDERED: METHYLPREDNISOLONE SOD SUCC 125 MG/2 ML VIAL IV STA (20:32)
[2021-12-23] MEDS ORDERED: IPRATROPIUM BROMIDE (0.02%) 0.5MG/2.5ML NEB HHN STA (20:32)
[2021-12-23 20:52] LABS: BASOPHILS % 0.9 % (0.0-2.0); EOSINOPHILS % 2.5 % (0.0-5.0); LYMPHOCYTES % 12.1 % (20.0-50.0); MEAN CORPUSCULAR HEMOGLOBIN 30.6 pg (28.0-32.0); MEAN CORPUSCULAR VOLUME 95.8 fL (81.0-99.0); MEAN PLATELET VOLUME 7.4 fl (7.4-10.4); MONOCYTES % 11.5 % (2.0-8.0); PLATELET 155 x1000/uL (130-400); RED BLOOD CELL COUNT 2.02 mill/uL (4.2-5.4); RED CELL DISTRIBUTION WIDTH 22.6 % (11.6-14.6)
[2021-12-23 20:55] LABS: HEMOGLOBIN. 6.2 g/dL (12.0-16.0)
[2021-12-23 20:56] LABS: HEMATOCRIT. 19.3 % (36.0-48.0)
[2021-12-23 20:58] LABS: CHLORIDE 94 mEq/L (98-107)
[2021-12-23 21:11] LABS: PLATELET ESTIMATE NORMAL
[2021-12-23] MEDS: ALBUTEROL (0.083%) 2.5MG/3ML NEB HHN SCH ×2 (21:23→21:24)
[2021-12-23] MEDS ORDERED: DIPHENHYDRAMINE 50MG/ML VIAL IV ONE (21:30)
[2021-12-23] MEDS ORDERED: MORPHINE SULFATE 4 MG/ML CPJ (NOT FOR IM USE) IV ONE (21:30)
[2021-12-23] MEDS ORDERED: GUAIFENESIN 200MG/10ML SUGAR FREE UDC PO PRN (22:45)
[2021-12-23] MEDS ORDERED: MAGNESIUM/ALUMINUM HYDROXIDE/SIMETHICONE 30ML UDC PO PRN (22:45)
[2021-12-23] MEDS ORDERED: ACETAMINOPHEN 325MG TABLET PO PRN (22:45)
[2021-12-23] MEDS ORDERED: CLONIDINE 0.1MG TABLET PO PRN (22:45)
[2021-12-23] MEDS ORDERED: HYDRALAZINE 20MG/ML VIAL IV PRN (22:45)
[2021-12-23] MEDS ORDERED: IPRATROPIUM/ALBUTEROL 0.5-3(2.5)MG/3ML NEB HHN PRN (22:45)
[2021-12-23] MEDS ORDERED: DOCUSATE SODIUM 100MG CAPSULE PO PRN (22:45)
[2021-12-23] MEDS ORDERED: HYDROCODONE/ACETAMINOPHEN 5/325MG TABLET PO PRN (22:45)
[2021-12-23] MEDS ORDERED: ONDANSETRON HCL 4MG/2ML INJ IV PRN (22:45)
[2021-12-23] MEDS ORDERED: LORAZEPAM 2MG/ML CPJ IV PRN (22:45)
[2021-12-24] MEDS: HYDRALAZINE 20MG/ML VIAL IV SCH ×5 (01:08→23:46)
[2021-12-24 05:14] LABS: HEMATOCRIT. 25.1 % (36.0-48.0); HEMOGLOBIN. 8.2 g/dL (12.0-16.0); MEAN CORPUSCULAR HEMOGLOBIN 30.9 pg (28.0-32.0); MEAN PLATELET VOLUME 7.4 fl (7.4-10.4); PLATELET 137 x1000/uL (130-400); RED BLOOD CELL COUNT 2.65 mill/uL (4.2-5.4); RED CELL DISTRIBUTION WIDTH 22.2 % (11.6-14.6)
[2021-12-24 05:22] LABS: CHLORIDE 96 mEq/L (98-107)
[2021-12-24] MEDS: SODIUM CHLORIDE 0.9% INJ 3ML FLUSH IVF SCH ×3 (06:30→22:12)
[2021-12-24] MEDS: MORPHINE SULFATE 2 MG/ML CPJ (NOT FOR IM USE) IV PRN (06:47)
[2021-12-24 07:01] LABS: PLATELET ESTIMATE NORMAL
[2021-12-24 08:26] LABS: HEPATITIS B SURFACE ANTIGEN NEGATIVE
[2021-12-24 11:54] VITALS: BP 117/49
[2021-12-24 12:00] VITALS: BP 117/49
[2021-12-24] MEDS ORDERED: IPRATROPIUM/ALBUTEROL 0.5-3(2.5)MG/3ML NEB NEB PRN (12:00)
[2021-12-24] MEDS ORDERED: MORPHINE SULFATE 2 MG/ML CPJ (NOT FOR IM USE) IV PRN (12:00)
[2021-12-24] MEDS ORDERED: LORAZEPAM 2MG/ML CPJ IV PRN (12:00)
[2021-12-24] MEDS ORDERED: ACETAMINOPHEN 325MG TABLET PO PRN (12:00)
[2021-12-24] MEDS ORDERED: ACETAMINOPHEN 650MG/20.3ML UDC GT PRN (12:00)
[2021-12-24] MEDS ORDERED: ONDANSETRON HCL 4MG/2ML INJ IV PRN (12:00)
[2021-12-24] MEDS: MULTIVITAMINS,THER W-MINERALS TABLET PO SCH (14:08)
[2021-12-24 16:00] VITALS: BP 143/54
[2021-12-24] MEDS: HYDROCODONE/ACETAMINOPHEN 5/325MG TABLET PO PRN (17:20)
[2021-12-24] MEDS ORDERED: NALOXONE HCL 0.4MG/ML VIAL IV PRN (18:15)
[2021-12-24 20:00] VITALS: BP 128/50
[2021-12-24] MEDS: DIPHENHYDRAMINE 50MG/ML VIAL IV PRN (23:46)
[2021-12-25] VITALS: BP 152/52
[2021-12-25 04:00] VITALS: BP 147/53
[2021-12-25] MEDS: SODIUM CHLORIDE 0.9% INJ 3ML FLUSH IVF SCH ×3 (05:47→20:44)
[2021-12-25] MEDS: HYDRALAZINE 20MG/ML VIAL IV SCH ×3 (05:47→17:29)
[2021-12-25] MEDS ORDERED: DEXTROSE 50% WATER 50ML SYRINGE IV PRN (07:30)
[2021-12-25] MEDS: INSULIN LISPRO 100 UNITS/ML SUBCUT SCH ×4 (07:40→20:48)
[2021-12-25 07:53] LABS: HEMATOCRIT. 25.3 % (36.0-48.0); MEAN CORPUSCULAR HEMOGLOBIN 30.7 pg (28.0-32.0); MEAN CORPUSCULAR VOLUME 97.1 fL (81.0-99.0); MEAN PLATELET VOLUME 7.4 fl (7.4-10.4); PLATELET 172 x1000/uL (130-400); RED BLOOD CELL COUNT 2.61 mill/uL (4.2-5.4)
[2021-12-25 08:00] VITALS: BP 147/51
[2021-12-25] MEDS: MULTIVITAMINS,THER W-MINERALS TABLET PO SCH (09:08)
[2021-12-25] MEDS: DIPHENHYDRAMINE 50MG/ML VIAL IV PRN ×2 (09:09→17:29)
[2021-12-25] MEDS: MORPHINE SULFATE 2 MG/ML CPJ (NOT FOR IM USE) IV PRN ×2 (09:10→17:28)
[2021-12-25 11:21] VITALS: BP 150/54
[2021-12-25] MEDS: BLOOD SUGAR DIAGNOSTIC STRIP TEST SCH ×3 (12:07→20:43)
[2021-12-25 13:10] LABS: PLATELET ESTIMATE NORMAL
[2021-12-25 15:46] VITALS: BP 147/56
[2021-12-25 20:00] VITALS: BP 149/58
[2021-12-26] VITALS: BP 152/56
[2021-12-26 04:00] VITALS: BP 164/64
[2021-12-26] MEDS: DIPHENHYDRAMINE 50MG/ML VIAL IV PRN ×2 (05:17→22:06)
[2021-12-26] MEDS: SODIUM CHLORIDE 0.9% INJ 3ML FLUSH IVF SCH ×3 (05:18→22:00)
[2021-12-26] MEDS: CLONIDINE 0.1MG TABLET PO PRN (05:31)
[2021-12-26] MEDS: BLOOD SUGAR DIAGNOSTIC STRIP TEST SCH ×4 (05:33→21:59)
[2021-12-26] MEDS: INSULIN LISPRO 100 UNITS/ML SUBCUT SCH ×4 (07:30→21:00)
[2021-12-26 08:00] VITALS: BP 123/53
[2021-12-26] MEDS: MULTIVITAMINS,THER W-MINERALS TABLET PO SCH (08:13)
[2021-12-26 12:00] VITALS: BP 144/56
[2021-12-26 15:33] VITALS: BP 150/52
[2021-12-26 20:00] VITALS: BP 140/54
[2021-12-27] VITALS: BP 150/56
[2021-12-27 04:00] VITALS: BP 152/81
[2021-12-27] MEDS: SODIUM CHLORIDE 0.9% INJ 3ML FLUSH IVF SCH ×3 (05:27→21:10)
[2021-12-27] MEDS: INSULIN LISPRO 100 UNITS/ML SUBCUT SCH ×3 (05:37→21:00)
[2021-12-27] MEDS: BLOOD SUGAR DIAGNOSTIC STRIP TEST SCH ×4 (05:37→21:10)
[2021-12-27] MEDS: CLONIDINE 0.1MG TABLET PO PRN ×2 (05:37→15:56)
[2021-12-27 08:00] VITALS: BP 134/53
[2021-12-27] MEDS: MULTIVITAMINS,THER W-MINERALS TABLET PO SCH (08:08)
[2021-12-27] MEDS: HYDROCODONE/ACETAMINOPHEN 5/325MG TABLET PO PRN (08:08)
[2021-12-27] MEDS: DIPHENHYDRAMINE 50MG/ML VIAL IV PRN ×2 (10:05→23:33)
[2021-12-27 12:00] VITALS: BP 125/53
[2021-12-27 16:00] VITALS: BP 175/58
[2021-12-27 20:00] VITALS: BP 131/47
[2021-12-28] VITALS: BP 135/58
[2021-12-28 04:00] VITALS: BP 145/50
[2021-12-28] MEDS: INSULIN LISPRO 100 UNITS/ML SUBCUT SCH ×3 (06:31→16:13)
[2021-12-28] MEDS: SODIUM CHLORIDE 0.9% INJ 3ML FLUSH IVF SCH ×2 (06:31→14:00)
[2021-12-28] MEDS: BLOOD SUGAR DIAGNOSTIC STRIP TEST SCH ×3 (06:31→16:12)
[2021-12-28] MEDS: HYDROCODONE/ACETAMINOPHEN 5/325MG TABLET PO PRN (06:58)
[2021-12-28] MEDS: CLONIDINE 0.1MG TABLET PO PRN ×2 (07:42→16:07)
[2021-12-28 08:00] VITALS: BP 180/60
[2021-12-28] MEDS: MULTIVITAMINS,THER W-MINERALS TABLET PO SCH (08:00)
[2021-12-28 12:00] VITALS: BP 166/55
[2021-12-28] MEDS ORDERED: FLUT1DIS3 INH (13:32)
[2021-12-28 14:09] VITALS: BP 162/61
[2021-12-28 16:00] VITALS: BP 162/61
== END 2021-12-28 16:55 | disposition home or self-care (01) | DRG 291 ==
LOC: ER 20:12 → ENRESERV 12-24 07:18 → 8WST 12-24 07:18 → EDBEDREQ 12-24 07:59
PROVIDERS: ADMIT Internal Medicine Nephrology; ATTEND Internal Medicine Nephrology
PROC: 30233N1 Transfusion of Nonautologous Red Blood Cells into Peripheral Vein, Percutaneous Approach (ICD-10-PCS; 2021-12-23)
PROC: 5A09357 Assistance with Respiratory Ventilation, Less than 24 Consecutive Hours, Continuous Positive Airway Pressure (ICD-10-PCS; 2021-12-23)
PROC: 5A1D70Z Performance of Urinary Filtration, Intermittent, Less than 6 Hours Per Day (ICD-10-PCS; principal; 2021-12-24)
PROC: 5A09357 Assistance with Respiratory Ventilation, Less than 24 Consecutive Hours, Continuous Positive Airway Pressure (ICD-10-PCS; 2021-12-24)
PROC: 5A1D70Z Performance of Urinary Filtration, Intermittent, Less than 6 Hours Per Day (ICD-10-PCS; 2021-12-26)
PROC: 5A1D70Z Performance of Urinary Filtration, Intermittent, Less than 6 Hours Per Day (ICD-10-PCS; 2021-12-28)
DX: I13.2 Hypertensive heart and chronic kidney disease with heart failure and with stage 5 chronic kidney disease, or end stage renal disease (principal); J96.01 Acute respiratory failure with hypoxia; I50.33 Acute on chronic diastolic (congestive) heart failure; N18.6 End stage renal disease; J44.1 Chronic obstructive pulmonary disease with (acute) exacerbation; E44.0 Moderate protein-calorie malnutrition; E87.1 Hypo-osmolality and hyponatremia; J84.9 Interstitial pulmonary disease, unspecified; Z68.1 Body mass index [BMI] 19.9 or less, adult; D50.0 Iron deficiency anemia secondary to blood loss (chronic); D72.819 Decreased white blood cell count, unspecified; E87.5 Hyperkalemia; K74.60 Unspecified cirrhosis of liver; F17.210 Nicotine dependence, cigarettes, uncomplicated; E11.22 Type 2 diabetes mellitus with diabetic chronic kidney disease; Z99.2 Dependence on renal dialysis; Z82.49 Family history of ischemic heart disease and other diseases of the circulatory system; Z84.1 Family history of disorders of kidney and ureter; Z91.19 Patient's noncompliance with other medical treatment and regimen; Z88.1 Allergy status to other antibiotic agents; Z79.899 Other long term (current) drug therapy; Z71.6 Tobacco abuse counseling
CPT/HCPCS: 36415; 71045; 80048; 80053; 82962; 83036; 83880; 84484; 85025; 86705; 86709; 86803; 86850; 86900; 86920; 87340; 93005; 93970; 94640; 94660; 99291; J0360; J1200; J2270; J2930; P9016